=== PATIENT | male | born 1950 | race Caucasian/White ===

== ENCOUNTER → 2019-08-08 | Emergency (ER) | payer MEDICARE, BC ==
[~2019-08-08] VITALS: Ht 182.9 cm; Wt 102.1 kg
[~2019-08-08] MED LIST: cefTRIAXone 1GM/50ML D5W 50 ML IV ONE
[2019-08-08 20:33] LABS: Basophils # (auto) 0.1 10 ^3/uL (0-0.2); Basophils % (auto) 0.9 % (0.0-2.0); Eosinophils # (auto) 0.2 10 ^3/uL (0-0.8); Eosinophils % (auto) 1.3 % (0.0-7.0); Hematocrit 38.5 % (41.0-53.0); Lymphocytes # (auto) 1.1 10 ^3/uL (0.4-5.4); Lymphocytes % (auto) 8.4 % (10.0-50.0); Mean Corpuscular Hemoglobin 32.7 pg (28.0-32.0); Mean Corpuscular Hgb Conc. 33.8 g/dL (32.0-36.0); Mean Corpuscular Volume 96.6 fL (80.0-100.0); Monocytes # (auto) 1.2 10 ^3/uL (0-1.3); Monocytes % (auto) 9.1 % (0.0-12.0); Neutrophils # (auto) 10.7 10 ^3/uL (1.6-8.6); Neutrophils % (auto) 80.3 % (37.0-80.0); Platelet Count (auto) 241 10^3/uL (140-450); Red Blood Cells 3.98 10^6/uL (4.5-5.90); Red Cell Distribution Width 13.4 % (11.8-14.3); White Blood Cell 13.3 10^3/uL (4.4-10.8)
[2019-08-08 20:48] LABS: Albumin 2.9 g/dL (3.4-5.0); BUN/Creatinine Ratio 13.7; Calcium 9.5 mg/dL (8.5-10.1); Potassium 3.9 mmol/L (3.5-5.1)
[2019-08-08 20:51] LABS: Bilirubin, Total 0.8 mg/dL (0.2-1.0); Total Protein 7.4 g/dL (6.4-8.2)
[2019-08-08 21:12] LABS: INR 1.06 (0.9-1.15); Partial Thromboplastin Time 28.5 sec (23.64-32.05)
[2019-08-08 23:00] VITALS: BP 146/76
== END | disposition home or self-care (01) ==
LOC: ER 18:31
DX: J21.9 Acute bronchiolitis, unspecified (principal); E11.9 Type 2 diabetes mellitus without complications; I10 Essential (primary) hypertension
CPT/HCPCS: 36415; 36600; 71045; 80053; 82805; 83605; 83880; 84484; 85025; 85379; 85610; 85730; 87040; 87070; 87804; 87880; 93005; 96365; 99285; J0696

== ENCOUNTER 2023-11-02 12:08 | Inpatient (IN) | payer MEDICARE, BC ==
[~2023-11-02] VITALS: Ht 182.9 cm; Wt 117.8 kg
[2023-11-02 14:08] LABS: Basophils # (auto) 0 10 ^3/uL (0-0.2); Basophils % (auto) 0.2 % (0.0-2.0); Eosinophils # (auto) 0 10 ^3/uL (0-0.8); Eosinophils % (auto) 0.7 % (0.0-7.0); Hematocrit 41.8 % (41.0-53.0); Hemoglobin 13.8 g/dL (13.5-17.5); Lymphocytes # (auto) 0.6 10 ^3/uL (0.4-5.4); Lymphocytes % (auto) 21.2 % (10.0-50.0); Mean Corpuscular Volume 93.8 fL (80.0-100.0); Monocytes # (auto) 0.2 10 ^3/uL (0-1.3); Neutrophils % (auto) 71.9 % (37.0-80.0); Nucleated Red Blood Cells % 0.1 %; Red Blood Cells 4.45 10^6/uL (4.5-5.90); Red Cell Distribution Width 16.8 % (11.8-14.3); White Blood Cell 2.8 10^3/uL (4.4-10.8)
[2023-11-02 14:45] LABS: Alanine Aminotransferase 42 U/L (7-40); Albumin 4.4 g/dL (3.2-4.8); Alkaline Phosphatase 94 U/L (46-116); Anion Gap 7 (5-15); Aspartate Aminotransferase 24 U/L (13-40); BUN/Creatinine Ratio 12.6 (10.0-20.0); Bilirubin, Total 0.7 mg/dL (0.2-1.0); Blood Urea Nitrogen 20 mg/dL (9-23); Calcium 9.9 mg/dL (8.7-10.4); Carbon Dioxide 24 mmol/L (20-30); Chloride 107 mmol/L (98-107); Glucose 163 mg/dL (74-106); Potassium 4.5 mmol/L (3.5-5.1); Sodium 138 mmol/L (136-145); Total Protein 7.2 g/dL (5.7-8.2)
[2023-11-02 15:43] LABS: Urine Bacteria None Seen /hpf (None Seen)
[2023-11-02 16:10] LABS: Urine Blood Negative /uL (Negative); Urine Clarity Clear (Clear); Urine Color Yellow (Yellow); Urine Hyaline Cast FEW /lpf (0 - 2); Urine Mucus FEW (None Seen); Urine Protein, UAD TRACE (Negative); Urine Specific Gravity 1.024 (1.001-1.035); Urine Urobilinogen Normal (Negative); Urine WBC 1 /hpf (0 - 3); Urine pH 5.5 (5.0-9.0)
[2023-11-02] MEDS ORDERED: DOCUSATE SOD 100 MG CAP PO PRN (19:00)
[2023-11-02] MEDS ORDERED: ACETAMINOPHEN 325 MG TAB PO PRN (19:00)
[2023-11-02] MEDS ORDERED: LISI20TA56 PO (19:30)
[2023-11-02] MEDS ORDERED: MET25T PO (19:30)
[2023-11-02] MEDS ORDERED: FOLI-119 PO (19:30)
[2023-11-02] MEDS ORDERED: DOXA1TAB84 PO (19:30)
[2023-11-02] MEDS ORDERED: LINA5TAB PO (19:30)
[2023-11-02] MEDS ORDERED: ROSU5TAB24 PO (19:30)
[2023-11-02] MEDS ORDERED: DEXTROSE (50%) 50ML SYRG IV PRN (19:30)
[2023-11-02] MEDS ORDERED: AMLO1TAB23 PO (19:30)
[2023-11-02] MEDS ORDERED: PIOG1TAB36 PO (19:30)
[2023-11-02] MEDS: metroNIDAZOLE 500MG/100ML 100 ML IV ONE (22:39)
[2023-11-02] MEDS: cefTRIAXone SOD 1,000 MG VL ONE (22:53)
[2023-11-02] MEDS: cefTRIAXone 2GM/50ML D5W 50 ML IV ONE (22:55)
[2023-11-02 23:31] VITALS: PULSE 106; RESP 16; O2SAT 93
[2023-11-02] MEDS: metroNIDAZOLE 500MG/100ML 100 ML IV SCH (23:41)
[2023-11-02] MEDS: METOPROLOL TARTRATE 25 MG TAB PO SCH (23:42)
[2023-11-02] MEDS: SODIUM CHLORIDE 0.9% 1,000 ML IV SCH (23:42)
[2023-11-03] VITALS (7 sets, daily range): BP systolic 90–142; BP diastolic 46–71; PULSE 89–123; RESP 16–22; TEMP 98.3–99.3; O2SAT 90–95
[2023-11-03] MEDS: ACCU-CHEK COMFORT CURVE STRIP VI SCH (00:45)
[2023-11-03] MEDS: InsuLIN REG 1unit/0.01ml Soln (100units/ml) SC SCH (00:45)
[2023-11-03] MEDS: MORPHINE SULFATE INJ 2 MG/ml SYRG IV PRN ×2 (03:52→15:48)
[2023-11-03] MEDS: ONDANSETRON HCL 4 MG/2 ML VIAL IV PRN (03:53)
[2023-11-03 06:04] LABS: Basophils # (auto) 0 10 ^3/uL (0-0.2); Basophils % (auto) 0.1 % (0.0-2.0); Eosinophils # (auto) 0 10 ^3/uL (0-0.8); Hematocrit 36.6 % (41.0-53.0); Hemoglobin 12.4 g/dL (13.5-17.5); Lymphocytes # (auto) 0.8 10 ^3/uL (0.4-5.4); Lymphocytes % (auto) 7.3 % (10.0-50.0); Mean Corpuscular Hemoglobin 31.3 pg (28.0-32.0); Mean Corpuscular Hgb Conc. 33.9 g/dL (32.0-36.0); Mean Corpuscular Volume 92.5 fL (80.0-100.0); Neutrophils # (auto) 8.6 10 ^3/uL (1.6-8.6); Neutrophils % (auto) 82.6 % (37.0-80.0); Red Blood Cells 3.95 10^6/uL (4.5-5.90); Red Cell Distribution Width 16.8 % (11.8-14.3); White Blood Cell 10.4 10^3/uL (4.4-10.8)
[2023-11-03] MEDS: HYDROcodone-ACET 5/325MG TAB PO PRN (06:14)
[2023-11-03 06:18] LABS: Alanine Aminotransferase 68 U/L (7-40); Albumin 4.2 g/dL (3.2-4.8); Alkaline Phosphatase 99 U/L (46-116); Anion Gap 8 (5-15); Aspartate Aminotransferase 44 U/L (13-40); BUN/Creatinine Ratio 12.9 (10.0-20.0); Calcium 9.4 mg/dL (8.5-10.1); Carbon Dioxide 23 mmol/L (20-30); Chloride 105 mmol/L (98-107); Glucose 140 mg/dL (74-106); Sodium 136 mmol/L (136-145); Total Protein 6.5 g/dL (5.7-8.2)
[2023-11-03 06:51] LABS: Blood Urea Nitrogen 34 mg/dL (9-23); Potassium 6.5 mmol/L (3.5-5.1)
[2023-11-03 08:05] LABS: Alanine Aminotransferase 64 U/L (7-40); Albumin 4.1 g/dL (3.2-4.8); Alkaline Phosphatase 96 U/L (46-116); Anion Gap 10 (5-15); Aspartate Aminotransferase 39 U/L (13-40); BUN/Creatinine Ratio 14.2 (10.0-20.0); Blood Urea Nitrogen 36 mg/dL (9-23); Calcium 9.1 mg/dL (8.5-10.1); Carbon Dioxide 21 mmol/L (20-30); Chloride 106 mmol/L (98-107); Glucose 125 mg/dL (74-106); Sodium 137 mmol/L (136-145)
[2023-11-03 08:06] LABS: Total Protein 6.4 g/dL (5.7-8.2)
[2023-11-03 08:07] LABS: INR 1.04 (0.9-1.15)
[2023-11-03] MEDS ORDERED: cefTRIAXone 1GM/50ML D5W 50 ML IV SCH (09:00)
[2023-11-03] MEDS: DOXAZOSIN MESYL 2 MG TAB PO SCH (10:00)
[2023-11-03] MEDS: amLODIPine BESYLATE 5 MG TAB PO SCH (10:00)
[2023-11-03] MEDS: PANTOPRAZOLE 40 MG/10 ML VIAL INJ IV SCH (10:00)
[2023-11-03] MEDS: PIPERACILLIN-TAZOB 3.375GM 100 ML IV SCH (10:00)
[2023-11-03] MEDS: FOLIC ACID 1 MG TAB PO SCH (10:01)
[2023-11-03] MEDS: ATORVASTATIN 20 MG TAB PO SCH (10:01)
[2023-11-04] VITALS (15 sets, daily range): BP systolic 116–141; BP diastolic 63–73; PULSE 76–112; RESP 16–22; TEMP 97.6–100.2; O2SAT 90–100
[2023-11-04] MEDS ORDERED: BUPIVACAINE HCL 50 ML ONE (06:55)
[2023-11-04] MEDS ORDERED: LIDOCAINE W/ EPINEPHRINE 1% 20ML VIAL ONE (06:55)
[2023-11-04] MEDS ORDERED: ceFAZolin 2 GM/D5W50ml 50 ML IV ONE (06:58)
[2023-11-04] MEDS ORDERED: LIDOCAINE 2% JELLY 11ml (GLYDO) ONE (07:03)
[2023-11-04] MEDS ORDERED: SUCCINYLCHOLINE CHLORIDE 20 MG/ML 10ML VIAL IV ONE (07:16)
[2023-11-04] MEDS ORDERED: fentaNYL CITRATE 100 MCG/2 ML VL ONE (07:22)
[2023-11-04] MEDS ORDERED: MIDAZOLAM HCL 2MG/2ML 2ml VIAL (1mg/ml) ONE (07:23)
[2023-11-04] MEDS ORDERED: MEPERIDINE HCL (50 MG/ML) 1 ML VIAL ONE (07:23)
[2023-11-04] MEDS ORDERED: DexAMETHasone SOD PHOS 10MG/1ML VIAL INJ ONE (07:46)
[2023-11-04] MEDS ORDERED: PROPOFOL 10 MG/ML 20 ML IV ONE (07:46)
[2023-11-04] MEDS ORDERED: POVIDONE IODINE 10 % TOPICAL OINT 30GM TOP ONE (08:19)
[2023-11-04] MEDS ORDERED: HYDROmorphone HCL 2 MG/ML VL/or syr IV PRN ×2 (08:30→09:15)
[2023-11-04] MEDS ORDERED: D5W/SOD CHL 0.45%/KCL 20MEQ 1,000 ML IV SCH (08:30)
[2023-11-04] MEDS: IPRATROPIUM BROM 0.5 MG/2.5ML INH SOL NEB ONE ×2 (09:09→14:31)
[2023-11-04] MEDS: ALBUTEROL SULF 2.5 MG/0.5ML(0.5%) NEB SOLN ONE (09:09)
[2023-11-04] MEDS: ALBUTEROL SULF 2.5 MG/0.5ML(0.5%) NEB SOLN NEB ONE (09:09)
[2023-11-04] MEDS: IPRATROPIUM BROM 0.5 MG/2.5ML INH SOL ONE (09:09)
[2023-11-04] MEDS ORDERED: LABETALOL HCL 5 MG/ML 4ML SYRINGE IV PRN (09:15)
[2023-11-04] MEDS ORDERED: MIDAZOLAM HCL 2MG/2ML 2ml VIAL (1mg/ml) IV PRN (09:15)
[2023-11-04] MEDS ORDERED: ONDANSETRON HCL 4 MG/2 ML VIAL IV ONE (09:15)
[2023-11-04] MEDS ORDERED: ePHEDrine SULFATE 50 MG/ML AMP IV PRN (09:15)
[2023-11-04] MEDS ORDERED: MORPHINE SULFATE 4 MG/ML SYR/VIAL IV PRN (09:15)
[2023-11-04] MEDS ORDERED: metroNIDAZOLE 500MG/100ML 100 ML IV SCH (14:00)
[2023-11-04] MEDS: SODIUM CHLORIDE 0.9% 1,000 ML IV SCH (18:52)
[2023-11-04] MEDS: IPRATROPIUM BROM 0.5 MG/2.5ML INH SOL NEB SCH (19:11)
[2023-11-05] VITALS (15 sets, daily range): BP systolic 101–157; BP diastolic 62–90; PULSE 89–136; RESP 16–20; TEMP 97.7–98.9; O2SAT 90–99
[2023-11-05 05:56] LABS: Basophils # (auto) 0 10 ^3/uL (0-0.2); Basophils % (auto) 0.1 % (0.0-2.0); Eosinophils # (auto) 0 10 ^3/uL (0-0.8); Eosinophils % (auto) 0.1 % (0.0-7.0); Hematocrit 34.9 % (41.0-53.0); Hemoglobin 11.7 g/dL (13.5-17.5); Lymphocytes # (auto) 0.6 10 ^3/uL (0.4-5.4); Lymphocytes % (auto) 4.2 % (10.0-50.0); Mean Corpuscular Hgb Conc. 33.6 g/dL (32.0-36.0); Mean Corpuscular Volume 92.1 fL (80.0-100.0); Monocytes # (auto) 0.9 10 ^3/uL (0-1.3); Monocytes % (auto) 6.9 % (0.0-12.0); Neutrophils # (auto) 11.8 10 ^3/uL (1.6-8.6); Neutrophils % (auto) 88.7 % (37.0-80.0); Red Blood Cells 3.79 10^6/uL (4.5-5.90); Red Cell Distribution Width 16.7 % (11.8-14.3); White Blood Cell 13.3 10^3/uL (4.4-10.8)
[2023-11-05 06:19] LABS: Alanine Aminotransferase 29 U/L (7-40); Albumin 3.7 g/dL (3.2-4.8); Alkaline Phosphatase 97 U/L (46-116); Anion Gap 8 (5-15); Aspartate Aminotransferase 19 U/L (13-40); BUN/Creatinine Ratio 21.9 (10.0-20.0); Blood Urea Nitrogen 44 mg/dL (9-23); Calcium 9.1 mg/dL (8.7-10.4); Carbon Dioxide 20 mmol/L (20-30); Chloride 107 mmol/L (98-107); Glucose 161 mg/dL (74-106); Potassium 4.8 mmol/L (3.5-5.1); Sodium 135 mmol/L (136-145)
[2023-11-05 06:20] LABS: Bilirubin, Total 0.5 mg/dL (0.2-1.0)
[2023-11-05] MEDS: HEPARIN SODIUM (PORCINE) 5000 UNITS/ML 1ML VIAL SC ONE (15:06)
[2023-11-05] MEDS: HEPARIN SODIUM (PORCINE) 5000 UNITS/ML 1ML VIAL SC SCH (22:03)
[2023-11-05] MEDS: CALCIUM CARB 500 MG CHEW TAB PO PRN (22:05)
[2023-11-06] VITALS (15 sets, daily range): BP systolic 94–133; BP diastolic 72–83; PULSE 61–137; RESP 16–22; TEMP 97.5–98.5; O2SAT 91–98
[2023-11-06 09:31] LABS: Hematocrit 37.4 % (41.0-53.0); Hemoglobin 12.6 g/dL (13.5-17.5); Mean Corpuscular Hemoglobin 30.9 pg (28.0-32.0); Mean Corpuscular Hgb Conc. 33.6 g/dL (32.0-36.0); Red Blood Cells 4.07 10^6/uL (4.5-5.90); Red Cell Distribution Width 16.9 % (11.8-14.3); White Blood Cell 15.8 10^3/uL (4.4-10.8)
[2023-11-06 09:39] LABS: Basophils % (manual) 0 (0.0-2.0); Blast Cells 0; Eosinophils % (manual) 0 (0-7); Metamyelocytes % 0; Myelocytes % 0; Promyelocytes % 0; Reactive Lymphocytes 0
[2023-11-06 09:49] LABS: Chloride 109 mmol/L (98-107); Sodium 138 mmol/L (136-145)
[2023-11-06 09:51] LABS: Anion Gap 9 (5-15); Calcium 9.2 mg/dL (8.5-10.1); Carbon Dioxide 20 mmol/L (20-30)
[2023-11-06 09:56] LABS: Glucose 176 mg/dL (74-106)
[2023-11-06 10:14] LABS: Anisocytosis Slight; Band Neutrophils % (manual) 7; Lymphocytes % (manual) 6 (10.0-50.0); Monocytes % (manual) 10 (0-12); Platelet Estimate Adequate
[2023-11-06 10:30] LABS: BUN/Creatinine Ratio 25.3 (10.0-20.0); Blood Urea Nitrogen 48 mg/dL (9-23); Potassium 4.4 mmol/L (3.5-5.1)
[2023-11-06] MEDS: METOPROLOL TARTRATE 25 MG TAB PO ONE (10:45)
[2023-11-06] MEDS: ALBUTEROL SULF 2.5 MG/0.5ML(0.5%) NEB SOLN NEB SCH (12:00)
[2023-11-06] MEDS: IPRATROPIUM BROM 0.5 MG/2.5ML INH SOL NEB SCH (12:00)
[2023-11-06] MEDS: levoFLOXacin 250MG 50 ML IV ONE (16:56)
[2023-11-06] MEDS: METOPROLOL TARTRATE 50 MG TAB PO SCH (21:42)
[2023-11-06] MEDS: APIXABAN 5 MG TAB PO SCH (21:43)
[2023-11-06] MEDS ORDERED: METOPROLOL TARTRATE 25 MG TAB PO SCH (22:00)
[2023-11-07] VITALS (14 sets, daily range): BP systolic 105–136; BP diastolic 71–105; PULSE 79–134; RESP 16–22; TEMP 97.9–98.1; O2SAT 94–100
[2023-11-07 05:30] LABS: Hematocrit 36.2 % (41.0-53.0); Hemoglobin 11.9 g/dL (13.5-17.5); Mean Corpuscular Hemoglobin 30.3 pg (28.0-32.0); Mean Corpuscular Hgb Conc. 32.9 g/dL (32.0-36.0); Mean Corpuscular Volume 92.3 fL (80.0-100.0); Red Blood Cells 3.92 10^6/uL (4.5-5.90); Red Cell Distribution Width 17.3 % (11.8-14.3); White Blood Cell 13.9 10^3/uL (4.4-10.8)
[2023-11-07 05:31] LABS: Band Neutrophils % (manual) 0; Basophils % (manual) 0 (0.0-2.0); Blast Cells 0; Eosinophils % (manual) 0 (0-7); Metamyelocytes % 0; Myelocytes % 0; Promyelocytes % 0; Reactive Lymphocytes 0
[2023-11-07 05:36] LABS: Chloride 107 mmol/L (98-107); Potassium 4.1 mmol/L (3.5-5.1); Sodium 137 mmol/L (136-145)
[2023-11-07 05:37] LABS: Anion Gap 9 (5-15); Calcium 8.8 mg/dL (8.5-10.1); Carbon Dioxide 21 mmol/L (20-30)
[2023-11-07 05:42] LABS: BUN/Creatinine Ratio 29.4 (10.0-20.0); Blood Urea Nitrogen 48 mg/dL (9-23); Glucose 162 mg/dL (74-106)
[2023-11-07 05:43] LABS: Magnesium 2.3 mg/dL (1.6-2.6)
[2023-11-07 07:13] LABS: Lymphocytes % (manual) 7 (10.0-50.0); Monocytes % (manual) 13 (0-12); Smudge Cells 1 /100 WBC
[2023-11-07 07:14] LABS: Platelet Estimate Adequate
[2023-11-07] MEDS: levoFLOXacin 250MG 50 ML IV SCH (09:21)
[2023-11-07] MEDS: DIGOXIN (250MCG/ML) 2 ML AMPULE IV ONE ×2 (10:05→12:43)
[2023-11-08] VITALS (24 sets, daily range): BP systolic 107–142; BP diastolic 62–86; PULSE 71–144; RESP 16–96; TEMP 97.7–98.2; O2SAT 94–100
[2023-11-08 06:00] LABS: Basophils # (auto) 0 10 ^3/uL (0-0.2); Basophils % (auto) 0.1 % (0.0-2.0); Eosinophils # (auto) 0.1 10 ^3/uL (0-0.8); Eosinophils % (auto) 0.9 % (0.0-7.0); Hematocrit 36.9 % (41.0-53.0); Hemoglobin 12.2 g/dL (13.5-17.5); Lymphocytes # (auto) 1.5 10 ^3/uL (0.4-5.4); Lymphocytes % (auto) 9.5 % (10.0-50.0); Mean Corpuscular Hemoglobin 30.3 pg (28.0-32.0); Mean Corpuscular Volume 91.8 fL (80.0-100.0); Monocytes # (auto) 1.5 10 ^3/uL (0-1.3); Monocytes % (auto) 9.6 % (0.0-12.0); Neutrophils # (auto) 12.5 10 ^3/uL (1.6-8.6); Neutrophils % (auto) 79.9 % (37.0-80.0); Red Blood Cells 4.02 10^6/uL (4.5-5.90); Red Cell Distribution Width 16.8 % (11.8-14.3); White Blood Cell 15.6 10^3/uL (4.4-10.8)
[2023-11-08 06:05] LABS: Chloride 107 mmol/L (98-107); Potassium 4.1 mmol/L (3.5-5.1); Sodium 136 mmol/L (136-145)
[2023-11-08 06:06] LABS: Anion Gap 7 (5-15); Calcium 8.7 mg/dL (8.7-10.4); Carbon Dioxide 22 mmol/L (20-30)
[2023-11-08 06:11] LABS: BUN/Creatinine Ratio 32.6 (10.0-20.0); Blood Urea Nitrogen 42 mg/dL (9-23); Glucose 165 mg/dL (74-106)
[2023-11-08 06:12] LABS: Magnesium 2.1 mg/dL (1.6-2.6)
[2023-11-08] MEDS: metroNIDAZOLE 500MG/100ML 100 ML IV ONE (10:40)
[2023-11-08] MEDS: DIGOXIN 0.125 MG TAB PO ONE (10:41)
[2023-11-08] MEDS ORDERED: metroNIDAZOLE 500MG/100ML 100 ML IV SCH (14:00)
[2023-11-08] MEDS: MEROPENEM 1GM IVPB 50 ML IV ONE (15:24)
[2023-11-08] MEDS: MEROPENEM 1GM IVPB 50 ML IV SCH (15:24)
[2023-11-09] VITALS (10 sets, daily range): BP systolic 106–132; BP diastolic 64–74; PULSE 71–95; RESP 17–20; TEMP 98.1–98.8; O2SAT 93–100
[2023-11-09 06:36] LABS: Anion Gap 6 (5-15); Carbon Dioxide 25 mmol/L (20-30); Chloride 105 mmol/L (98-107); Potassium 4.1 mmol/L (3.5-5.1); Sodium 136 mmol/L (136-145)
[2023-11-09 06:38] LABS: Calcium 8.7 mg/dL (8.7-10.4)
[2023-11-09 06:43] LABS: BUN/Creatinine Ratio 29.3 (10.0-20.0); Blood Urea Nitrogen 36 mg/dL (9-23); Glucose 165 mg/dL (74-106)
[2023-11-09 06:49] LABS: Hematocrit 35.1 % (41.0-53.0); Hemoglobin 11.8 g/dL (13.5-17.5); Mean Corpuscular Hgb Conc. 33.7 g/dL (32.0-36.0); Mean Corpuscular Volume 91.9 fL (80.0-100.0); Red Blood Cells 3.82 10^6/uL (4.5-5.90); White Blood Cell 14.5 10^3/uL (4.4-10.8)
[2023-11-09 06:52] LABS: Basophils % (manual) 0 (0.0-2.0); Blast Cells 0; Promyelocytes % 0
[2023-11-09 07:44] LABS: Anisocytosis Slight; Band Neutrophils % (manual) 7; Eosinophils % (manual) 2 (0-7); Lymphocytes % (manual) 6 (10.0-50.0); Metamyelocytes % 3; Monocytes % (manual) 9 (0-12); Myelocytes % 1; Platelet Estimate Adequate; Reactive Lymphocytes 1
[2023-11-09] MEDS: DIGOXIN 0.125 MG TAB PO SCH (09:37)
[2023-11-09] MEDS: FLECAINIDE ACETATE 50 MG TAB PO ONE (12:40)
[2023-11-09] MEDS ORDERED: FLECAINIDE ACETATE 50 MG TAB PO SCH (22:00)
== END 2023-11-09 18:38 | disposition left against medical advice (07) | DRG 853 ==
LOC: ER 12:08 → OVERFLOW 19:30 → EAST 11-03 03:30 → TELE-E-ADS 11-05 04:01
PROVIDERS: ADMIT Internal Medicine Geriatric Medicine; ATTEND Internal Medicine Geriatric Medicine
PROC: 0WJG4ZZ Inspection of Peritoneal Cavity, Percutaneous Endoscopic Approach (ICD-10-PCS; 2023-11-04)
PROC: 0DTJ0ZZ Resection of Appendix, Open Approach (ICD-10-PCS; principal; 2023-11-04 07:23)
DX: A41.9 Sepsis, unspecified organism (principal); N17.0 Acute kidney failure with tubular necrosis; K56.7 Ileus, unspecified; K35.30 Acute appendicitis with localized peritonitis, without perforation or gangrene; E78.5 Hyperlipidemia, unspecified; I10 Essential (primary) hypertension; E11.9 Type 2 diabetes mellitus without complications; K76.0 Fatty (change of) liver, not elsewhere classified; Z96.653 Presence of artificial knee joint, bilateral; E66.01 Morbid (severe) obesity due to excess calories; N40.0 Benign prostatic hyperplasia without lower urinary tract symptoms; K66.0 Peritoneal adhesions (postprocedural) (postinfection); I48.0 Paroxysmal atrial fibrillation; Z87.442 Personal history of urinary calculi; Z68.35 Body mass index [BMI] 35.0-35.9, adult; Z79.899 Other long term (current) drug therapy; Z79.84 Long term (current) use of oral hypoglycemic drugs; Z53.31 Laparoscopic surgical procedure converted to open procedure; Z86.79 Personal history of other diseases of the circulatory system
CPT/HCPCS: 36415; 71045; 74176; 80048; 80053; 81001; 82962; 83036; 83735; 85007; 85025; 85027; 85610; 85730; 86850; 86900; 86901; 87070; 87075; 87077; 87186; 87205; 93005; 93306; 94640; 96365; 97110; 97116; 97163; 97530; C9113; G0378; J0330; J0696; J1100; J1815; J2185; J2250; J2405; J2543; J2704; J3490

== ENCOUNTER 2024-03-25 08:30 | Inpatient (IN) | payer MEDICARE, OTHER ==
[2024-03-25] VITALS (7 sets, daily range): BP systolic 92–111; BP diastolic 53–62; PULSE 85–96; RESP 17–28; TEMP 98–98.8; O2SAT 92–100
[~2024-03-25] VITALS: Ht 182.9 cm; Wt 111.5 kg
[~2024-03-25 08:30] MED LIST changes: +AMLO1TAB23 PO; +DOXA1TAB84 PO; +FOLI-119 PO; +LINA5TAB PO; +LISI20TA56 PO; +MET25T PO; +PIOG1TAB36 PO; +ROSU5TAB24 PO; -cefTRIAXone 1GM/50ML D5W 50 ML IV ONE
--- NOTE | 2024-03-25 08:44 | ED.PDOC ---
SOB-HPI HPI Comments 74 year old male YESI presents to the ED with chief complaint of SOB. Patient reports that he has been experiencing SOB since this morning after waking up along with non-related abdominal pain for the past few days. Patient relays that he received his Influenza vaccine a week ago. EMS states patient was placed on O2 on route to the ED. Patient denies any chest pain, headache, cough, dizziness, or N/V/D. Time Seen by MD: 08:45 Primary Care Provider: CHRISTINE Ordoñez notes: Nurses Notes, Squad Boss Notes, Medications, Allergies Information Source: Patient, Emergency Med Personnel Mode of Arrival: EMS Severity: Moderate Timing: Hours Duration: Since onset Context: At Rest PE Risk Factors: None History of: None Prehospital treatment: None Modifying Factors: Nothing Associated Signs and Symptoms: None Past Medical History PAST MEDICAL HISTORY: DM, HTN Surgical History: Denies all surgeries Family History Family History: Reviewed,noncontributory to illness Social History Smoker: Non-Smoker Alcohol: Denies ETOH Use Drugs: Denies Drug Use Lives In: Home Constitutional: denies: chills, diaphoresis, fatigue, fever, malaise, sweats, weakness, others EENTM: denies: blurred vision, double vision, ear bleeding, ear discharge, ear drainage, ear pain, ear ringing, eye pain, eye redness, hearing loss, mouth pain, mouth swelling, nasal discharge, nose bleeding, nose congestion, nose pain, photophobia, tearing, throat pain, throat swelling, voice changes, others Respiratory: reports: shortness of breath; denies: cough, hemoptysis, orthopnea, SOB at rest, SOB with excertion, stridor, wheezing, others Cardiovascular: denies: chest pain, dizzy spells, diaphoresis, Dyspnea on exertion, edema, irregular heart beat, left arm pain, lightheadedness, palpitations, PND, syncope, others Gastrointestinal: reports: abdominal pain; denies: abdomen distended, blood streaked bowels, constipated, diarrhea, dysphagia, difficulty swallowing, hematemesis, melena, nausea, poor appetite, poor fluid intake, rectal bleeding, rectal pain, vomiting, others Genitourinary: denies: burning, dysuria, flank pain, frequency, hematuria, incontinence, penile discharge, penile sore, pain, testicle pain, testicle swelling, urgency, others Neurological: denies: dizziness, fainting, headache, left sided numbness, left sided weakness, numbness, paresthesia, pre-existing deficit, right sided numbness, right sided weakness, seizure, speech problems, tingling, tremors, weakness, others Musculoskeletal: denies: back pain, gout, joint pain, joint swelling, muscle pain, muscle stiffness, neck pain, others Integumetry: denies: bruises, change in color, change in hair/nails, dryness, laceration, lesions, lumps, rash, wounds, others Allergic/Immunocompromised: denies: Difficulty Healing, Frequent Infections, Hives, Itching, others Hematologic/Lymphatic: denies: anemia, blood clots, easy bleeding, easy bruising, swollen glands, others Endocrine: denies: excessive hunger, excessive sweating, excessive thirst, excessive urination, flushing, intolerance to cold, intolerance to heat, unexplained weight gain, unexplained weight loss, others Psychiatric: denies: anxiety, bipolar disorder, depression, hopeless, panic disorder, schizophrenia, sleepless, suicidal, others All Other Systems: Reviewed and Negative Physical Exam General Appearance: Moderate Distress, Normal HEENT: Normal ENT Inspection, PERRL/EOMI Neck: Full Range of Motion, Non-Tender, Normal, Normal Inspection Respiratory: Chest Non-Tender, No Accessory Muscle Use, Other (Coarse breath sounds) Cardiovascular: No Edema, No JVD, No Murmur, No Gallop, Normal Peripheral Pulses, Regular Rate/Rhythm Breast Exam: Deferred Gastrointestinal: No Organomegaly, Non Tender, No Pulsatile Mass, Normal Bowel Sounds, Soft Genitalia: Deferred Pelvic: Deferred Rectal: Deferred Extremities: No calf tenderness, Normal capillary refill, Normal inspection, Normal range of motion, Non-tender, No pedal edema Musculoskeletal : Apperance: Normal Neurologic: Alert, 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 Was a procedure done?: No Differential Dx Differential Diagnosis: Anxiety, Asthma, Bronchitis, CHF, COPD X-Ray, Labs, Meds, VS Vital Signs Date Time Temp Pulse Resp B/P (MAP) Pulse Ox O2 Delivery O2 Flow Rate FiO2 03/25/24 08:50 98.2 87 24 91/60 (70) 96 98.2 03/25/24 08:50 87 28 96 Nasal Cannula* 2 28 03/25/24 08:37 94 03/25/24 08:35 99.5 98 16 87/60 (69) 97 Lab Test 03/25/24 10:09 03/25/24 08:47 Range/Units Sodium Level Pending Potassium Level Pending Chloride Level Pending Carbon Dioxide Level Pending Anion Gap Pending Blood Urea Nitrogen Pending Creatinine Pending Glomerular Filtration Rate Calc Pending BUN/Creatinine Ratio Pending Serum Glucose Pending Calcium Level Pending Troponin I High Sensitivity 6 6 </=54 ng/L White Blood Count 3.1 L 4.4-10.8 10^3/uL Red Blood Count 4.24 L 4.5-5.90 10^6/uL Hemoglobin 12.8 L 13.5-17.5 g/dL Hematocrit 38.1 L 41.0-53.0 % Mean Corpuscular Volume 90.0 80.0-100.0 fL Mean Corpuscular Hemoglobin 30.2 28.0-32.0 pg Mean Corpuscular Hemoglobin Concent 33.5 32.0-36.0 g/dL Red Cell Distribution Width 16.6 H 11.8-14.3 % Platelet Count 186 140-450 10^3/uL Mean Platelet Volume 9.4 6.9-10.8 fL Neutrophils (%) (Auto) 37.0-80.0 % Lymphocytes (%) (Auto) 10.0-50.0 % Monocytes (%) (Auto) 0.0-12.0 % Basophils (%) (Auto) 0.0-2.0 % Neutrophils # (Auto) 1.6-8.6 10 ^3/uL Lymphocytes # (Auto) 0.4-5.4 10 ^3/uL Monocytes # (Auto) 0-1.3 10 ^3/uL Differential Total Cells Counted 100.0 100 Neutrophils % (Manual) 71 37.0-80.0 Band Neutrophils % (Manual) 7 Lymphocytes % (Manual) 15 10.0-50.0 Monocytes % (Manual) 7 0-12 Eosinophils % (Manual) 0 0-7 Basophils % (Manual) 0 0.0-2.0 Metamyelocytes % (manual) 0 Myelocytes % (Manual) 0 Promyelocytes % (Manual) 0 Blast Cells % (Manual) 0 Reactive Lymphocytes 0 Platelet Estimate Adequate Anisocytosis (manual) Slight Current Medications Medications (Trade) Dose Ordered Sig/Calista Route Start Time Stop Time Status Last Admin Sodium Chloride 1,000 ml @ 1,000 mls/hr Q1H ONCE IV 03/25/24 09:15 03/25/24 10:14 DC 03/25/24 09:35 Sodium Chloride 1,000 ml @ 1,000 mls/hr Q1H ONCE IV 03/25/24 09:45 03/25/24 10:44 DC 03/25/24 09:45 Sodium Chloride 1,000 ml @ 150 mls/hr Q6H40M ONCE IV 03/25/24 10:30 03/25/24 17:09 03/25/24 10:54 Patient alert. Complaining of abdominal pain shortness a breath. Shortness a breath just started this morning. Vitals stable. Abdomen is soft nontender. Abdominal pain has been going on for two days. Denies nausea vomiting. Symptoms started after her yearly vaccine. Reviewed his history. EKG reviewed does not show any acute changes. Explained to the patient. Continue cardiac monitoring. Blood pressure is low. Establish intravenous access. Was given fluids. Blood pressure equal on both arms. Chest XR: FINDINGS: Lines and Tubes: None Lungs: No focal consolidation. Pleura: No effusion. No pneumothorax. Cardiomediastinal contours: Unremarkable Bones: No acute osseous abnormality. IMPRESSION: No acute cardiopulmonary disease. Images Reviewed?: Images reviewed and evaluated by me Time of 1ST Reevaluation: 09:45 Reevaluation 1ST: Unchanged Patient Education/Counseling: Diagnosis, Treatment Family Education/Counseling: No Family Present Departure 1 Departure Time of Disposition: 09:09 Impression: Primary Impression: Hypotension Qualified Codes: I95.9 - Hypotension, unspecified Additional Impression: Acute abdominal pain Disposition: ADMITTED INPATIENT Admit to: Med Surg Condition: Guarded Critical Care Note Critical Care Time?: Yes (90 min-critical care time only) Stability Stability form required: No Heart Score Heart Score: Heart Score Response (Comments) Value History Slightly Suspicious 0 EKG Normal 0 Age >65 2 Risk Factors >3 or Hx ASHD 2 Troponin Normal limit 0 Total 4 I personally scribed for JESÚS ZAPAAT MD ([email or web address]) on 03/25/24 at 08:44. Electronically submitted by Sinan Lassiter ([email or web address]). I personally scribed for JESÚS ZAPATA MD ([email or web address]) on 03/25/24 at 08:47. Electronically submitted by Sinan Lassiter ([email or web address]). I personally scribed for JESÚS ZAPATA MD ([email or web address]) on 03/25/24 at 10:30. Electronically submitted by Sinan Lassiter ([email or web address]). JESÚS ZAPATA MD Mar 25, 2024 08:44
[2024-03-25] MEDS: ONDANSETRON HCL 4 MG/2 ML VIAL ONE (08:55)
[2024-03-25 09:08] LABS: Hematocrit 38.1 % (41.0-53.0); Hemoglobin 12.8 g/dL (13.5-17.5); Mean Corpuscular Hemoglobin 30.2 pg (28.0-32.0); Mean Corpuscular Hgb Conc. 33.5 g/dL (32.0-36.0); Platelet Count (auto) 186 10^3/uL (140-450); Red Blood Cells 4.24 10^6/uL (4.5-5.90); Red Cell Distribution Width 16.6 % (11.8-14.3); White Blood Cell 3.1 10^3/uL (4.4-10.8)
[2024-03-25 09:15] LABS: Basophils % (manual) 0 (0.0-2.0); Blast Cells 0; Eosinophils % (manual) 0 (0-7); Metamyelocytes % 0; Myelocytes % 0; Promyelocytes % 0; Reactive Lymphocytes 0
[2024-03-25] MEDS ORDERED: SODIUM CHLORIDE 0.9% 1,000 ML IV ONE (09:15)
--- NOTE | 2024-03-25 09:32 | DVH ---
CHEST RADIOGRAPH Indication:sob Technique: Single frontal view of the chest was obtained Comparison: XY CHEST PORTABLE on DOS: 11/04/23, XY CHEST PORTABLE on DOS: 11/03/23, CHEST PORTABLE on D OS: 08/08/19 FINDINGS: Lines and Tubes: None Lungs: No focal consolidation. Pleura: No effusion. No pneumothorax. Cardiomediastinal contours: Unremarkable Bones: No acute osseous abnormality. IMPRESSION: No acute cardiopulmonary disease.
[2024-03-25] MEDS: SODIUM CHLORIDE 0.9% 1,000 ML IV ONE ×4 (09:35→20:15)
[2024-03-25 10:59] LABS: Lymphocytes % (manual) 15 (10.0-50.0)
[2024-03-25 11:00] LABS: Anisocytosis Slight; Band Neutrophils % (manual) 7; Monocytes % (manual) 7 (0-12); Platelet Estimate Adequate
[2024-03-25 11:15] LABS: Chloride 106 mmol/L (98-107); Potassium 3.5 mmol/L (3.5-5.1); Sodium 141 mmol/L (136-145)
[2024-03-25 11:16] LABS: Anion Gap 15 (5-15); Calcium 9.1 mg/dL (8.7-10.4); Carbon Dioxide 20 mmol/L (20-31)
[2024-03-25 11:21] LABS: Blood Urea Nitrogen 48 mg/dL (9-23); Glucose 113 mg/dL (74-106)
[2024-03-25] MEDS ORDERED: ONDANSETRON HCL 4 MG/2 ML VIAL IV PRN (14:00)
[2024-03-25] MEDS ORDERED: MORPHINE SULFATE INJ 2 MG/ml SYRG IV PRN (14:00)
[2024-03-25] MEDS ORDERED: HYDROcodone-ACET 5/325MG TAB PO PRN (14:00)
[2024-03-25] MEDS ORDERED: TAMS0.4C39 PO (14:21)
[2024-03-25] MEDS ORDERED: ALLO100T PO (14:21)
[2024-03-25 14:40] LABS: Chloride 108 mmol/L (98-107); Potassium 3.8 mmol/L (3.5-5.1)
[2024-03-25 14:41] LABS: Calcium 8.8 mg/dL (8.7-10.4); Carbon Dioxide 22 mmol/L (20-31)
[2024-03-25 14:46] LABS: BUN/Creatinine Ratio 13.5 (10.0-20.0); Blood Urea Nitrogen 48 mg/dL (9-23); Glucose 110 mg/dL (74-106)
--- NOTE | 2024-03-25 15:03 | DVH ---
CT ABDOMEN AND PELVIS WITHOUT CONTRAST CLINICAL HISTORY: Abdominal pain TECHNIQUE: Multiple contiguous axial images of the abdomen and pelvis without intravenous contrast. The images were reformatted degenerate coronal and sagittal reconstructions. All CT scans at this medical facility are performed using dose modulation techniques as appropriate t o a performed exam including the following:Automated exposure control was utilized; adjustment of the MA and/or KV according to patient size; and use of iterative reconstruction technique. Radiation Dose Information: CT Dose: CTDI volume is 27.74 mGy. Dose-length product is 1483.54 mGy*cm Comparison: CT CT AB PEL WO CON-NO ORAL OR IV on DOS: 11/02/23 FINDINGS: Evaluation of the abdomen and pelvis is limited without intravenous contrast. There are multiple dilated small bowel loops in the abdomen which are mostly fluid-filled with air-fl uid levels noted anteriorly. These measure up to 4.1 cm in diameter. There are nondilated ileal loops seen in the right lower quadrant abdomen. There is no obvious transition zone identified. The large bowel loops demonstrate normal caliber. There are numerous diverticula seen in the sigmoid colon wit hout obvious diverticulitis. The stomach appears within normal limits. There are multiple small calcified granulomas in the spleen. Note is made of a horseshoe kidney . The re is no evidence of nephrolithiasis or hydronephrosis. The liver, gallbladder, pancreas, adrenal glands, appear within normal limits. There is no gross evidence of abdominal lymphadenopathy. There is small amount of ascites. There are edematous changes in the mesentery. The abdominal aorta and IVC appear within normal limits. Bladder is decompressed limiting evaluation. The prostate gland appears within normal limits. There is no evidence of a pelvic mass. There is small amount of free fluid in the pelvis.. Lung bases are clear. There are prominent calcified subcarinal mediastinal lymph nodes. There is no acute osseous abnormality. There are postsurgical changes in the anterior abdominal wall. IMPRESSION: 1. Multiple dilated small bowel loops measuring up to 4.1 cm in diameter. There are nondilated ileal loops seen in the right lower quadrant abdomen. There is no obvious transition zone. Findings May re late to ileus versus partial small bowel obstruction. Clinical correlation is recommended. 2. 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 3. Small amount of ascites and edematous changes in the mesentery. 4. Sigmoid diverticulosis. 5. Chronic granulomatous disease. HS:Y
--- NOTE | 2024-03-25 15:26 | DVHHP2 ---
History of Present Illness Reason for Visit: Shortness of breath and abdominal pain History of Present Illness 74-year-old male brought in by ambulance presents to the ED with chief complaint of shortness of breath. Patient states he has been experiencing shortness of breath since this morning after waking up as well as abdominal pain for the past 3 days. Patient states he received his flu vaccine 1 week ago. EMS placed patient on O2 EN route to the ED. when assessed patient reports not being able to urinate any significant amount since this morning. Patient was also noted to be hypotensive in the ambulance with lowest blood pressure reading 71/66. Patient was discharged November 08 after lap appendectomy, patient left AMA from that admission. Patient was given a fluid bolus, blood pressure is currently 93/69. Patient denies chest pain, headache, dizziness, diaphoresis, shortness of breath, no nausea, vomiting, fever, or chills endorsed by the patient. Patient was admitted for further evaluation medical management. Past Medical History DM, HTN Past Surgical History Appendectomy Family History Reviewed noncontributory to the management of this case Smoke: Quit (Quit 8 years ago) ALCOHOL: rare Drugs: None Lives: with Family Review of Systems Constitutional: No: Fever, Chills, Sweats, Weakness, Malaise, Other Eyes: No: Pain, Vision change, Conjunctivae inflammation, Eyelid inflammation, Other, Redness ENT: No: Ear pain, Ear discharge, Nose pain, Nose discharge, Nose congestion, Mouth pain, Mouth swelling, Throat pain, Throat swelling, Other Respiratory: Shortness of breath; No: Cough, Dry, SOB with excertion, Wheezing, Hemoptysis, Pleuritic Pain, Sputum, Wheezing, Other Cardiovascular: No: Chest Pain, Palpitations, Orthopnea, Paroxysmal Noc. Dyspnea, Edema, Lt Headedness, Other Gastrointestinal: Abdominal Pain; No: Nausea, Vomiting, Diarrhea, Constipation, Melena, Hematochezia, Other Genitourinary: No Dysuria, No Frequency, No Incontinence, No Hematuria; Retention; No Other Musculoskeletal: No: other, neck pain, shoulder pain, arm pain, back pain, hand pain, leg pain, foot pain Skin: No: Rash, Lesions, Jaundice, Bruising, Other Neurological: No: Weakness, Numbness, Incoordination, Change in speech, Confusion, Seizures, Other Allergies: Coded Allergies: NO KNOWN ALLERGIES (Unverified , 01/03/16) Medications Current Medications Medications Dose Ordered Sig/Calista Route Start Time Stop Time Status Last Admin Dose Admin Acetaminophen/ Hydrocodone Bitart 1 tab Q4HP PRN PO 03/25/24 14:00 Ondansetron HCl 4 mg Q4HP PRN IV 03/25/24 14:00 Morphine Sulfate 2 mg Q4HPRN PRN IV 03/25/24 14:00 Metoprolol Tartrate 25 mg BID PO 03/25/24 22:00 Amlodipine Besylate 10 mg DAILY PO 03/26/24 10:00 Atorvastatin Calcium 20 mg HS PO 03/25/24 22:00 Tamsulosin HCl 0.4 mg DAILY PO 03/26/24 10:00 Exam Vital Signs Vital Signs Date Time Temp Pulse Resp B/P (MAP) Pulse Ox O2 Delivery O2 Flow Rate FiO2 03/25/24 12:30 89 18 93/69 (77) 95 03/25/24 08:50 98.2 98.2 03/25/24 08:50 Nasal Cannula* 2 28 General Appearance: Alert, Oriented X3, Cooperative, No acute distress HEENT: Atraumatic, PERRLA, EOMI, Mucous membr. moist/pink Respiratory: Clear to auscultation, Other (Diminished) Cardiovascular: Regular rate, Normal S1, Normal S2, No murmurs Abdominal: Normal bowel sounds, Soft, No tenderness, No hepatospenomegaly, No masses Extremities: No clubbing, No cyanosis, No edema, Normal pulses, No tenderness/swelling Skin: No rashes, No breakdown, No significant lesion Neuro: Normal gait, Normal speech, Strength at 5/5 X4 ext, Normal tone, Sensation intact, Cranial nerves 3-12 NL Psych/Mental Status: Mental status NL, Mood NL Labs/Xrays Labs, imaging and ED notes reviewed Labs Test 03/25/24 12:03 03/25/24 08:47 Range/Units Sodium Level 142 136-145 mmol/L Potassium Level 3.8 3.5-5.1 mmol/L Chloride Level 108 H 98-107 mmol/L Carbon Dioxide Level 22 20-31 mmol/L Blood Urea Nitrogen 48 H 9-23 mg/dL Creatinine 3.56 H 0.700-1.30 mg/dL Glomerular Filtration Rate Calc 17 >90 mL/min BUN/Creatinine Ratio 13.5 10.0-20.0 Serum Glucose 110 H 74-106 mg/dL Calcium Level 8.8 8.7-10.4 mg/dL Troponin I High Sensitivity 5 </=54 ng/L White Blood Count 3.1 L 4.4-10.8 10^3/uL Red Blood Count 4.24 L 4.5-5.90 10^6/uL Hemoglobin 12.8 L 13.5-17.5 g/dL Hematocrit 38.1 L 41.0-53.0 % Mean Corpuscular Volume 90.0 80.0-100.0 fL Mean Corpuscular Hemoglobin 30.2 28.0-32.0 pg Mean Corpuscular Hemoglobin Concent 33.5 32.0-36.0 g/dL Red Cell Distribution Width 16.6 H 11.8-14.3 % Platelet Count 186 140-450 10^3/uL Mean Platelet Volume 9.4 6.9-10.8 fL Neutrophils (%) (Auto) 37.0-80.0 % Lymphocytes (%) (Auto) 10.0-50.0 % Monocytes (%) (Auto) 0.0-12.0 % Basophils (%) (Auto) 0.0-2.0 % Neutrophils # (Auto) 1.6-8.6 10 ^3/uL Lymphocytes # (Auto) 0.4-5.4 10 ^3/uL Monocytes # (Auto) 0-1.3 10 ^3/uL Differential Total Cells Counted 100.0 100 Neutrophils % (Manual) 71 37.0-80.0 Band Neutrophils % (Manual) 7 Lymphocytes % (Manual) 15 10.0-50.0 Monocytes % (Manual) 7 0-12 Eosinophils % (Manual) 0 0-7 Basophils % (Manual) 0 0.0-2.0 Metamyelocytes % (manual) 0 Myelocytes % (Manual) 0 Promyelocytes % (Manual) 0 Blast Cells % (Manual) 0 Reactive Lymphocytes 0 Platelet Estimate Adequate Anisocytosis (manual) Slight Assessment/Plan Assessment/Plan Acute hypoxic respiratory failure Admit to medical/surgical 2 L nasal cannula Supplemental oxygen Titrate to keep SpO2 greater than 92% Abdominal pain secondary to possible ileus versus partial bowel obstruction No nausea or vomiting per patient Zofran p.r.n. GI consult LUZ ELENA Renal panel notes sample was hemolyzed Repeat labs Consult nephrology Follow up a.m. labs Chronic BPH Possible urinary retention-nursing to do bladder scan, insert Almanzar if patient is unable to void Continue Flomax Hypotension Fluid bolus given Blood pressure stable Hold home blood pressure medications until blood pressure stabilized History diabetes mellitus type 2 Accu-Cheks a.c. HS Moderate insulin sliding scale FEN/PPX GI prophylaxis VTE prophylaxis not indicated Clear liquid diet Plan discussed with: Patient My Orders Orders - EDA LAZO Procedure Category Date Status Time Ct Ab Pel Wo Con-No CT 03/25/24 Resulted Oral Or Iv 14:00 Covid19 Antigen Farideh LAB 03/25/24 Logged Rapid Influenza A&B LAB 03/25/24 Logged 14:00 Basic Metabolic Panel LAB 03/25/24 In Process 14:00 Admit ADMIT 03/25/24 Transmitted 14:00 Code Status CODE 03/25/24 Transmitted 14:00 Vital Signs [facility] 03/25/24 In Process 14:00 Review Orders With [facility] 03/25/24 In Process Adm. 14:00 Bedrest With Bathroom [facility] 03/25/24 In Process Privileg 14:00 Consistent DIET 03/25/24 Transmitted Carb(Ccho)Diabetes Dinner Notify Of Changes [facility] 03/25/24 In Process From Base 14:00 Advance Directive [facility] 03/25/24 In Process 14:00 Basic Metabolic Panel LAB 03/26/24 Verified 04:00 Complete Blood Count LAB 03/26/24 Verified 04:00 Patient Condition ORDERS 03/25/24 Transmitted 14:00 Allergies [facility] 03/25/24 In Process 14:00 Hydrocodone-Acet PHA 03/25/24 In Process 5/325mg Tab ([place] 14:00 Ondansetron Hcl PHA 03/25/24 In Process (Zofran) 14:00 Morphine Sulfate PHA 03/25/24 In Process Injection 14:00 Metoprolol Tartrate PHA 03/25/24 In Process Tablet (Lopressor Ta 22:00 Amlodipine Tablet PHA 03/26/24 In Process (Norvasc Tablet) 10:00 Atorvastatin (Lipitor) PHA 03/25/24 In Process 22:00 Tamsulosin PHA 03/26/24 In Process Hydrochloride (Flomax) 10:00 Date of Service: Mar 25, 2024 Billing Provider: EDA LAZO Common Visit Codes: [id number] INP/OBS CARE (HIGH) EDA LAZO B[employer] WORKER Mar 25, 2024 15:26
[2024-03-25 15:30] LABS: Anion Gap 12 (5-15); Sodium 142 mmol/L (136-145)
[2024-03-25] MEDS ORDERED: DEXTROSE (50%) 50ML SYRG IV PRN (15:30)
[2024-03-25] MEDS: PANTOPRAZOLE 40 MG/10 ML VIAL INJ IV SCH (16:32)
[2024-03-25] MEDS: InsuLIN REG 1unit/0.01ml Soln (100units/ml) SC SCH (17:00)
[2024-03-25] MEDS: ACCU-CHEK COMFORT CURVE STRIP VI SCH (17:27)
--- NOTE | 2024-03-25 17:33 | DVHINCON2 ---
Date of service: Mar 25, 2024 Reason for Consultation Acute kidney injury History of Present Illness 79-year-old male past medical history of diabetes, hypertension and BPH presents to the hospital complaining of shortness of breath and near loss of consciousness. Nephrology consulted due to abnormal renal function. Per EMS patient has had low blood pressure since presentation. He reports that he took his blood pressure medications prior to EMS. In the ER his blood pressure has been ranging between 90-107 systolic Patient is status post CT of the abdomen which shows possible bowel obstruction Past Medical History Aortic aneurysm Diabetes Hypertension Allergies: Coded Allergies: NO KNOWN ALLERGIES (Unverified , 01/03/16) Home Meds Reported Medications Allopurinol (Allopurinol) 100 Mg Tab, 1 TAB PO DAILY 03/25/24 Tamsulosin Hcl (Tamsulosin Hcl) 0.4 Mg Cap, 1 CAP PO DAILY 03/25/24 Rosuvastatin Calcium (Rosuvastatin Calcium) 5 Mg Tab, 1 TAB PO DAILY 11/02/23 Folic Acid (Folic Acid) 1 Mg Tab, 1 TAB PO DAILY 11/02/23 Doxazosin Mesylate (Doxazosin) 1 Mg Tab, 1 TAB PO DAILY 11/02/23 Linagliptin Base (TRADJENTA) 5 Mg Tab, 1 TAB PO DAILY 11/02/23 Pioglitazone Hydrochloride (PIOGLITAZONE HCL) 15 Mg Tab, 1 TAB PO DAILY 11/02/23 Lisinopril (Lisinopril) 20 Mg Tab, 1 TAB PO DAILY 11/02/23 Amlodipine Besylate (Amlodipine Besylate) 10 Mg Tab, 1 TAB PO DAILY 11/02/23 Metoprolol Tartrate (Lopressor) 25 Mg Tb, 1 TAB PO BID 11/02/23 Current Medications Current Medications Medications (Trade) Dose Ordered Sig/Calista Route PRN Reason Start Time Stop Time Status Last Admin Acetaminophen/ Hydrocodone Bitart ([place] 5/325MG Tab) 1 tab Q4HP PRN PO MODERATE PAIN (4-6 PAIN SCALE) 03/25/24 14:00 Ondansetron HCl (Zofran) 4 mg Q4HP PRN IV NAUSEA / VOMITING 03/25/24 14:00 Morphine Sulfate 2 mg Q4HPRN PRN IV SEVERE PAIN (7-10 PAIN SCALE) 03/25/24 14:00 Metoprolol Tartrate (Lopressor Tablet) 25 mg BID PO 03/25/24 22:00 03/25/24 15:25 DC Amlodipine Besylate (Norvasc Tablet) 10 mg DAILY PO 03/26/24 10:00 03/25/24 15:25 DC Atorvastatin Calcium (Lipitor) 20 mg HS PO 03/25/24 22:00 Tamsulosin HCl (Flomax) 0.4 mg DAILY PO 03/26/24 10:00 Pantoprazole Sodium (Protonix) 40 mg DAILY IV 03/25/24 15:30 03/25/24 16:32 Albuterol (Ventolin Medneb) 2.5 mg Q6HR NEB 03/25/24 18:00 Ipratropium [place] (Atrovent Medneb) 0.5 mg Q6HR NEB 03/25/24 18:00 Diagnostic Test (Pha) (Accu-Chek Comfort Curve T) 1 strip ACHS 03/25/24 17:00 03/25/24 17:27 Insulin Human Regular (InsuLIN R) ACHS SC 03/25/24 17:00 Dextrose 50 ml UD PRN IV Blood Sugar LESS THAN 60 03/25/24 15:30 Family History: Patient reports no known family medical history. Review of Systems Shortness of breath H&P Exam Vital Signs/I&O Vital Sign Date Time Temp Pulse Resp B/P (MAP) Pulse Ox O2 Delivery O2 Flow Rate FiO2 03/25/24 16:00 86 21 97/58 (71) 95 03/25/24 15:00 99.5 99.5 03/25/24 08:50 Nasal Cannula* 2 28 Physical Exam Elderly white male Mildly distress due to shortness of breath currently breathing on oxygen No murmur Abdomen is soft not firm nontender No pitting edema Labs/Diagnostic Data Labs/Diagnostic Data Laboratory Tests Test 03/25/24 18:15 03/25/24 17:23 03/25/24 12:03 03/25/24 10:09 Range/Units POC Glucose 103 70-106 mg/dl Sodium Level 142 141 136-145 mmol/L Potassium Level 3.8 3.5 3.5-5.1 mmol/L Chloride Level 108 H 106 98-107 mmol/L Carbon Dioxide Level 22 20 20-31 mmol/L Anion Gap 12 15 5-15 Blood Urea Nitrogen 48 H 48 H 9-23 mg/dL Creatinine 3.56 H 3.43 H 0.700-1.30 mg/dL Glomerular Filtration Rate Calc 17 18 >90 mL/min BUN/Creatinine Ratio 13.5 14.0 10.0-20.0 Serum Glucose 110 H 113 H 74-106 mg/dL Calcium Level 8.8 9.1 8.7-10.4 mg/dL Troponin I High Sensitivity 5 6 </=54 ng/L Test 03/25/24 08:47 Range/Units White Blood Count 3.1 L 4.4-10.8 10^3/uL Red Blood Count 4.24 L 4.5-5.90 10^6/uL Hemoglobin 12.8 L 13.5-17.5 g/dL Hematocrit 38.1 L 41.0-53.0 % Mean Corpuscular Volume 90.0 80.0-100.0 fL Mean Corpuscular Hemoglobin 30.2 28.0-32.0 pg Mean Corpuscular Hemoglobin Concent 33.5 32.0-36.0 g/dL Red Cell Distribution Width 16.6 H 11.8-14.3 % Platelet Count 186 140-450 10^3/uL Mean Platelet Volume 9.4 6.9-10.8 fL Neutrophils (%) (Auto) 37.0-80.0 % Lymphocytes (%) (Auto) 10.0-50.0 % Monocytes (%) (Auto) 0.0-12.0 % Basophils (%) (Auto) 0.0-2.0 % Neutrophils # (Auto) 1.6-8.6 10 ^3/uL Lymphocytes # (Auto) 0.4-5.4 10 ^3/uL Monocytes # (Auto) 0-1.3 10 ^3/uL Differential Total Cells Counted 100.0 100 Neutrophils % (Manual) 71 37.0-80.0 Band Neutrophils % (Manual) 7 Lymphocytes % (Manual) 15 10.0-50.0 Monocytes % (Manual) 7 0-12 Eosinophils % (Manual) 0 0-7 Basophils % (Manual) 0 0.0-2.0 Metamyelocytes % (manual) 0 Myelocytes % (Manual) 0 Promyelocytes % (Manual) 0 Blast Cells % (Manual) 0 Reactive Lymphocytes 0 Platelet Estimate Adequate Anisocytosis (manual) Slight Troponin I High Sensitivity 6 </=54 ng/L Assessment Acute kidney injury multifactorial but likely hemodynamically mediated ckd 3a SBO vs Illeus [place] kidney Persistent hypotension possibly secondary to blood pressure medication effect IV fluid ordered UA Clinically does not appear to be hypervolemic however patient is requiring 4 L of continuous oxygen Obtain BMP Obtain echo takes lisinopril at home on hold Currently on IV fluids recommend considering pressors if unable to maintain mean arterial pressure greater than 65 Currently getting Almanzar catheter placed Strict Is&Os Hold blood pressure medications at this time Plan discussed with: Patient FLORENTIN CHENG MD Mar 25, 2024 17:33
[2024-03-25] MEDS: LIDOCAINE 2% JELLY 11ml (GLYDO) UR ONE (18:12)
[2024-03-25 18:43] LABS: Urine Bacteria FEW /hpf (None Seen); Urine Blood 3+ /uL (Negative); Urine Clarity Ex.Turbid (Clear); Urine Color Dark-Yellow (Yellow); Urine Hyaline Cast FEW /lpf (0 - 2); Urine Mucus FEW (None Seen); Urine Protein, UAD 1+ (Negative); Urine Specific Gravity 1.024 (1.001-1.035); Urine Urobilinogen 2 mg/dL (Negative); Urine WBC 43 /hpf (0 - 3)
--- NOTE | 2024-03-25 19:00 | ECG ---
[facility] Test Date: 2024-03-25 Test Time: 08:34:57 Pat Name: JUAREZ WALDEN Department: ED Room: 0287 Gender: M [employer]: RUPERT : 1950 Requested By: JESÚS ZAPATA Order Number: [id number] Reading MD: Mukesh Florence Measurements Intervals [place] Rate: 94 P: 15 TX: 152 QRS: 0 QRSD: 97 T: -18 QT: 370 QTc: 463 Interpretive Statements Sinus rhythm Consider anterior infarct Nonspecific T abnormalities, inferior leads Baseline wander in lead(s) I,II,III,aVR,aVL,aVF,V1,V5,V6 Electronically Signed On 03-31-2024 13:22:07 PST by Mukesh Florence Please click the below link to view image of tracing.
[2024-03-25] MEDS: ALBUTEROL SULF 2.5 MG/0.5ML(0.5%) NEB SOLN NEB SCH (19:02)
[2024-03-25] MEDS: IPRATROPIUM BROM 0.5 MG/2.5ML INH SOL NEB SCH (19:02)
[2024-03-25] MEDS: cefTRIAXone 1GM/50ML D5W 50 ML IV SCH (20:15)
[2024-03-25] MEDS: SODIUM CHLORIDE 0.9% 1,000 ML IV SCH (20:30)
[2024-03-25 21:16] LABS: COVID19 ANTIGEN SOFIA FIA NEGATIVE (NEGATIVE); Rapid Influenza A Negative (Negative); Rapid Influenza B Negative (Negative)
[2024-03-25] MEDS: metroNIDAZOLE 500MG/100ML 100 ML IV SCH (21:45)
[2024-03-25] MEDS: ATORVASTATIN 20 MG TAB PO SCH (21:45)
[2024-03-25] MEDS ORDERED: METOPROLOL TARTRATE 25 MG TAB PO SCH (22:00)
[2024-03-26] VITALS (14 sets, daily range): BP systolic 109–134; BP diastolic 60–76; PULSE 80–130; RESP 17–28; TEMP 97.3–98.9; O2SAT 90–100
[2024-03-26 06:12] LABS: Basophils # (auto) 0 10 ^3/uL (0-0.2); Basophils % (auto) 0.1 % (0.0-2.0); Eosinophils # (auto) 0 10 ^3/uL (0-0.8); Eosinophils % (auto) 0.4 % (0.0-7.0); Hematocrit 30.2 % (41.0-53.0); Hemoglobin 10.3 g/dL (13.5-17.5); Lymphocytes # (auto) 0.5 10 ^3/uL (0.4-5.4); Lymphocytes % (auto) 10.7 % (10.0-50.0); Mean Corpuscular Hemoglobin 30.5 pg (28.0-32.0); Mean Corpuscular Hgb Conc. 34.3 g/dL (32.0-36.0); Monocytes # (auto) 0.7 10 ^3/uL (0-1.3); Monocytes % (auto) 14.7 % (0.0-12.0); Neutrophils # (auto) 3.7 10 ^3/uL (1.6-8.6); Neutrophils % (auto) 74.1 % (37.0-80.0); Platelet Count (auto) 173 10^3/uL (140-450); Red Blood Cells 3.39 10^6/uL (4.5-5.90); Red Cell Distribution Width 16.4 % (11.8-14.3)
[2024-03-26 06:44] LABS: Anion Gap 13 (5-15); Carbon Dioxide 19 mmol/L (20-31); Chloride 109 mmol/L (98-107); Potassium 4.4 mmol/L (3.5-5.1); Sodium 141 mmol/L (136-145)
[2024-03-26 06:45] LABS: Calcium 8.8 mg/dL (8.7-10.4)
[2024-03-26 06:50] LABS: Glucose 97 mg/dL (74-106)
[2024-03-26 06:54] LABS: Blood Urea Nitrogen 61 mg/dL (9-23)
[2024-03-26] MEDS ORDERED: DICL75TA2 PO (07:58)
[2024-03-26] MEDS ORDERED: EVOL140I SC (07:58)
[2024-03-26] MEDS ORDERED: OMEP20TA PO (07:58)
[2024-03-26] MEDS ORDERED: ASPI-543 PO (07:58)
[2024-03-26] MEDS: TAMSULOSIN HYDROCHLORIDE 0.4 MG CAP PO SCH (09:28)
[2024-03-26] MEDS ORDERED: amLODIPine BESYLATE 5 MG TAB PO SCH (10:00)
[2024-03-26] MEDS: FUROSEMIDE 100 MG/10ML VIAL IV ONE ×2 (11:45→14:21)
--- NOTE | 2024-03-26 12:44 | DVHPN2 ---
Progress Note - Dictate Date Seen: Mar 26, 2024 Medical Necessity Reason Pt with a Central, PICC or Fol: Yes The following are medically ne: Irving Catheter Subjective Patient's blood pressure is improved today However during interval patient is notably short of breath Patient appears winded with simple light conversation. vital signs Vital Sign Date Time Temp Pulse Resp B/P (MAP) Pulse Ox O2 Delivery O2 Flow Rate FiO2 03/26/24 08:00 98.2 114 22 134/76 (95) 92 98.2 03/26/24 08:00 Nasal Cannula* 4 36 Total Intake and Output 03/25/24 03/25/24 03/26/24 15:00 23:00 07:00 Intake Total 2600 ml 300 ml 0 ml Output Total 0 ml Balance 2600 ml 300 ml 0 ml medications Current Medications Medications Dose Ordered Sig/Calista Route Start Time Stop Time Status Last Admin Dose Admin Acetaminophen/ Hydrocodone Bitart 1 tab Q4HP PRN PO 03/25/24 14:00 Ondansetron HCl 4 mg Q4HP PRN IV 03/25/24 14:00 Morphine Sulfate 2 mg Q4HPRN PRN IV 03/25/24 14:00 Atorvastatin Calcium 20 mg HS PO 03/25/24 22:00 03/25/24 21:45 20 MG Tamsulosin HCl 0.4 mg DAILY PO 03/26/24 10:00 03/26/24 09:28 0.4 MG Pantoprazole Sodium 40 mg DAILY IV 03/25/24 15:30 03/26/24 09:28 40 MG Albuterol 2.5 mg Q6HR NEB 03/25/24 18:00 03/26/24 06:18 2.5 MG Ipratropium [place] 0.5 mg Q6HR NEB 03/25/24 18:00 03/26/24 06:18 0.5 MG Diagnostic Test (Pha) 1 strip ACHS 03/25/24 17:00 03/26/24 06:15 1 STRIP Insulin Human Regular ACHS SC 03/25/24 17:00 Dextrose 50 ml UD PRN IV 03/25/24 15:30 Ceftriaxone Sodium 50 ml @ 100 mls/hr DAILY@09 IV 03/25/24 20:15 03/26/24 09:28 100 MLS/HR Metronidazole 100 ml @ 100 mls/hr Q8HR IV 03/25/24 22:00 03/26/24 06:31 100 MLS/HR Sodium Chloride 1,000 ml @ 50 mls/hr Q20H IV 03/26/24 11:45 objective Elderly white male Tachypnea No murmur irregular rate and rhythm Abdomen is soft not firm nontender No pitting edema irving catheter urine color dark laboratory and microbiology Laboratory Tests 03/26/24 05:21 Test 03/26/24 05:21 Range/Units Serum Glucose 97 74-106 mg/dL Assessment/Plan Acute kidney injury multifactorial but likely hemodynamically mediated ckd 3a SBO vs Illeus [place] kidney Persistent hypotension possibly secondary to blood pressure medication effect Paroxysmal AFib? IV fluid ordered reduced rate Diuretic dose TRAM Obtain echo Rec cardiac evaluation rec r/o PE given high O2 requirements takes lisinopril at home on hold Currently getting Irving catheter placed Strict Is&Os Hold blood pressure medications at this time Plan discussed with: Patient FLORENTIN CHENG MD Mar 26, 2024 12:44
[2024-03-26] MEDS: SODIUM CHLORIDE 0.9% 1,000 ML IV SCH (13:08)
--- NOTE | 2024-03-26 13:08 | DVHPN2 ---
Reviewed: Care Plan, H&P, Labs, Medications, Previous Orders, Radiology Changes from previous H/P or p: No Changes Eyes: No Pain, No Vision change, No Conjunctivae inflammation, No Eyelid inflammation, No Other, No Redness ENT: No Ear pain, No Ear discharge, No Nose pain, No Nose discharge, No Nose congestion, No Mouth pain, No Mouth swelling, No Throat pain, No Throat swelling, No Other Cardiovascular: No Chest Pain, No Palpitations, No Orthopnea, No Paroxysmal Noc. Dyspnea, No Edema, No Lt Headedness, No Other Respiratory: No Cough, No Dry; Shortness of breath; No SOB with excertion, No Wheezing, No Hemoptysis, No Pleuritic Pain, No Sputum, No Other Gastrointestinal: No Nausea, No Vomiting; Abdominal Pain; No Diarrhea, No Constipation, No Melena, No Hematochezia, No Other Genitourinary: No Dysuria, No Frequency, No Incontinence, No Hematuria; R etention; No Other Musculoskeletal: No other, No neck pain, No shoulder pain, No arm pain, No back pain, No hand pain, No leg pain, No foot pain Skin: No Rash, No Lesions, No Jaundice, No Bruising, No Other Objective Vitals Vital Signs Date Time Temp Pulse Resp B/P (MAP) Pulse Ox O2 Delivery O2 Flow Rate FiO2 03/26/24 08:00 98.2 114 22 134/76 (95) 92 98.2 03/26/24 08:00 Nasal Cannula* 4 36 Intake/Output Intake and Output 03/26/24 07:00 Intake Total 2900 ml Output Total 0 ml Balance 2900 ml Intake Oral 0 ml IV Total 2900 ml Output Urine Total 0 ml # Bowel Movements 2 Medications Current Medications Medications Dose Ordered Sig/Calista Route Start Time Stop Time Status Last Admin Dose Admin Acetaminophen/ Hydrocodone Bitart 1 tab Q4HP PRN PO 03/25/24 14:00 Ondansetron HCl 4 mg Q4HP PRN IV 03/25/24 14:00 Morphine Sulfate 2 mg Q4HPRN PRN IV 03/25/24 14:00 Atorvastatin Calcium 20 mg HS PO 03/25/24 22:00 03/25/24 21:45 20 MG Tamsulosin HCl 0.4 mg DAILY PO 03/26/24 10:00 03/26/24 09:28 0.4 MG Pantoprazole Sodium 40 mg DAILY IV 03/25/24 15:30 03/26/24 09:28 40 MG Albuterol 2.5 mg Q6HR NEB 03/25/24 18:00 03/26/24 06:18 2.5 MG Ipratropium [place] 0.5 mg Q6HR NEB 03/25/24 18:00 03/26/24 06:18 0.5 MG Diagnostic Test (Pha) 1 strip ACHS 03/25/24 17:00 03/26/24 06:15 1 STRIP Insulin Human Regular ACHS SC 03/25/24 17:00 Dextrose 50 ml UD PRN IV 03/25/24 15:30 Ceftriaxone Sodium 50 ml @ 100 mls/hr DAILY@09 IV 03/25/24 20:15 03/26/24 09:28 100 MLS/HR Metronidazole 100 ml @ 100 mls/hr Q8HR IV 03/25/24 22:00 03/26/24 06:31 100 MLS/HR Sodium Chloride 1,000 ml @ 50 mls/hr Q20H IV 03/26/24 11:45 Laboratory Results Laboratory Tests 03/26/24 05:21 Chemistry Test 03/26/24 05:21 Calcium Level 8.8 mg/dL (8.7-10.4) Urinalysis Test 03/25/24 18:15 Urine Color Dark-yellow (Yellow) Urine Clarity Ex.turbid (Clear) Urine pH 5.0 (5.0-9.0) Urine Specific [place] 1.024 (1.001-1.035) Urine Protein 1+ (Negative) H Urine Ketones Negative (Negative) Urine Blood 3+ /uL (Negative) H Urine Nitrite Negative (Negative) Urine Bilirubin Negative (Negative) Urine Urobilinogen 2 mg/dL (Negative) H Urine Leukocyte Esterase Negative /uL (Negative) Urine RBC 788 /hpf (0 - 3) Urine WBC 43 /hpf (0 - 3) Urine Squamous Epithelial Cells Few /hpf (<5) Urine Bacteria Few /hpf (None Seen) H Urine Hyaline Casts Few /lpf (0 - 2) Urine Mucus Few (None Seen) Urine Glucose Normal mg/dL (Normal) Labs and/or images reviewed: Labs reviewed by me, Image(s) reviewed by me Assessment/Plan Assessment/Plan Septic shock with altered mental status low blood pressure and confusion secondary to small-bowel obstruction Rocephin Flagyl Acute dehydration: IV fluids Hypoxic respiratory failure: Oxygen by nasal cannula Abdominal Pain secondary to small-bowel obstruction: Consult for surgeon LUZ ELENA: Consult by Dr. Boswell appreciated Diabetes type 2 Hypertension Hypercholesterolemia BPH Acute urinary tract infection: Blood cultures urine cultures, continue Rocephin History of Laparoscopic appendectomy 11/04/[address] Howell Shanita test neg COVID test negative Time spent 70 minutes Advanced care planning time 20 minutes Patient is full code Patient Left AMA during the previous visit in November 2023 Plan discussed with: Patient Date of Service: Mar 26, 2024 Billing Provider: LOUISA BONILLA MD Common Visit Codes: [id number] CARE 30-74 MIN LOUISA BONILLA MD Mar 26, 2024 13:08
--- NOTE | 2024-03-26 14:09 | DVHINCON2 ---
Date of service: Mar 26, 2024 History of Present Illness 74-year-old male with a history of hypertension and diabetes admitted secondary to shortness of breath and abdominal pain without fevers, chills, nausea or vomiting. Patient reports improvement in his abdominal pain. Patient had two bowel movements yesterday. Patient just had clear liquid diet and was able to tolerate it. Past Medical History Hypertension. Diabetes. Morbid obesity. Past Surgical History Left shoulder surgery. Bilateral knee surgeries. Open appendectomy. And neck surgery. Family History: Chronic obstructive pulmonary disease G8 FATHER FH: emphysema G8 FATHER FH: stroke G8 MOTHER Hypertension G8 MOTHER Family History Noncontributory Social History Quit tobacco years ago. Occasional alcohol. Denies any IV drug use. Allergies: Coded Allergies: NO KNOWN ALLERGIES (Unverified , 01/03/16) Home Meds Reported Medications Evolocumab (Repatha) 140 Mg/Ml Inj, 140 MG SC, INJ 03/26/24 Omeprazole (Gnp Omeprazole) 20 Mg Tab, 40 MG PO DAILY, TAB 03/26/24 Diclofenac Sodium (Diclofenac Sodium) 75 Mg Tab, 75 MG PO DAILY, TAB 03/26/24 Aspirin (Aspir-Low) 81 Mg Tab, 81 MG PO DAILY for 30 Days, MG 03/26/24 Allopurinol (Allopurinol) 100 Mg Tab, 1 TAB PO DAILY 03/25/24 Tamsulosin Hcl (Tamsulosin Hcl) 0.4 Mg Cap, 1 CAP PO DAILY 03/25/24 Rosuvastatin Calcium (Rosuvastatin Calcium) 5 Mg Tab, 1 TAB PO DAILY 11/02/23 Folic Acid (Folic Acid) 1 Mg Tab, 1 TAB PO DAILY 11/02/23 Doxazosin Mesylate (Doxazosin) 1 Mg Tab, 1 TAB PO DAILY 11/02/23 Linagliptin Base (TRADJENTA) 5 Mg Tab, 1 TAB PO DAILY 11/02/23 Pioglitazone Hydrochloride (PIOGLITAZONE HCL) 15 Mg Tab, 1 TAB PO DAILY 11/02/23 Lisinopril (Lisinopril) 20 Mg Tab, 1 TAB PO DAILY 11/02/23 Amlodipine Besylate (Amlodipine Besylate) 10 Mg Tab, 1 TAB PO DAILY 11/02/23 Metoprolol Tartrate (Lopressor) 25 Mg Tb, 1 TAB PO BID 11/02/23 Current Medications Current Medications Medications (Trade) Dose Ordered Sig/Calista Route PRN Reason Start Time Stop Time Status Last Admin Metoprolol Tartrate (Lopressor Tablet) 25 mg BID PO 03/25/24 22:00 03/25/24 15:25 DC Amlodipine Besylate (Norvasc Tablet) 10 mg DAILY PO 03/26/24 10:00 03/25/24 15:25 DC Atorvastatin Calcium (Lipitor) 20 mg HS PO 03/25/24 22:00 03/25/24 21:45 Tamsulosin HCl (Flomax) 0.4 mg DAILY PO 03/26/24 10:00 03/26/24 09:28 Pantoprazole Sodium (Protonix) 40 mg DAILY IV 03/25/24 15:30 03/26/24 09:28 Albuterol (Ventolin Medneb) 2.5 mg Q6HR NEB 03/25/24 18:00 03/26/24 06:18 Ipratropium [place] (Atrovent Medneb) 0.5 mg Q6HR NEB 03/25/24 18:00 03/26/24 06:18 Diagnostic Test (Pha) (Accu-Chek Comfort Curve T) 1 strip ACHS 03/25/24 17:00 03/26/24 11:30 Insulin Human Regular (InsuLIN R) ACHS SC 03/25/24 17:00 Dextrose 50 ml UD PRN IV Blood Sugar LESS THAN 60 03/25/24 15:30 Ceftriaxone Sodium 50 ml @ 100 mls/hr DAILY@09 IV 03/25/24 20:15 03/26/24 09:28 Metronidazole 100 ml @ 100 mls/hr Q8HR IV 03/25/24 22:00 03/26/24 06:31 Sodium Chloride 1,000 ml @ 150 mls/hr Q6H40M IV 03/25/24 20:30 03/26/24 11:45 DC 03/26/24 09:29 Sodium Chloride 1,000 ml @ 50 mls/hr Q20H IV 03/26/24 11:45 03/26/24 13:08 Vital Signs Vital Signs Date Time Temp Pulse Resp B/P (MAP) Pulse Ox O2 Delivery O2 Flow Rate FiO2 03/26/24 12:00 97.3 101 22 109/68 (82) 91 97.3 03/26/24 08:00 Nasal Cannula* 4 36 Physical Exam GEN: Obese male in no acute distress. Alert. On nasal cannula. HEENT: Normocephalic atraumatic. Moist mucous membranes. Anicteric sclerae. CV: RRR Respiratory: Coarse breath sounds ABD: Well-healed incisional scar. Abdomen is obese, soft. Nontender nondistended. CT of the abdomen and pelvis: Multiple dilated small bowel loops measuring up to 4.1 cm without obvious transition zone. Labs/Diagnostic Data Labs Test 03/26/24 13:45 03/26/24 11:16 03/26/24 05:21 03/25/24 20:20 Range/Units POC Glucose 105 70-106 mg/dl White Blood Count 5.0 # 4.4-10.8 10^3/uL Red Blood Count 3.39 L 4.5-5.90 10^6/uL Hemoglobin 10.3 #L 13.5-17.5 g/dL Hematocrit 30.2 #L 41.0-53.0 % Mean Corpuscular Volume 89.0 80.0-100.0 fL Mean Corpuscular Hemoglobin 30.5 28.0-32.0 pg Mean Corpuscular Hemoglobin Concent 34.3 32.0-36.0 g/dL Red Cell Distribution Width 16.4 H 11.8-14.3 % Platelet Count 173 140-450 10^3/uL Mean Platelet Volume 8.5 6.9-10.8 fL Neutrophils (%) (Auto) 74.1 37.0-80.0 % Lymphocytes (%) (Auto) 10.7 10.0-50.0 % Monocytes (%) (Auto) 14.7 H 0.0-12.0 % Eosinophils (%) (Auto) 0.4 0.0-7.0 % Basophils (%) (Auto) 0.1 0.0-2.0 % Neutrophils # (Auto) 3.7 1.6-8.6 10 ^3/uL Lymphocytes # (Auto) 0.5 0.4-5.4 10 ^3/uL Monocytes # (Auto) 0.7 0-1.3 10 ^3/uL Eosinophils # (Auto) 0 0-0.8 10 ^3/uL Basophils # (Auto) 0 0-0.2 10 ^3/uL Nucleated Red Blood Cells 0.0 % Sodium Level 141 136-145 mmol/L Potassium Level 4.4 3.5-5.1 mmol/L Chloride Level 109 H 98-107 mmol/L Carbon Dioxide Level 19 L 20-31 mmol/L Anion Gap 13 5-15 Blood Urea Nitrogen 61 #H 9-23 mg/dL Creatinine 4.08 H 0.700-1.30 mg/dL Glomerular Filtration Rate Calc 15 >90 mL/min BUN/Creatinine Ratio 15.0 10.0-20.0 Serum Glucose 97 74-106 mg/dL Calcium Level 8.8 8.7-10.4 mg/dL Influenza Type A Antigen Negative Negative Influenza Type B Antigen Negative Negative SARS-CoV-2 Antigen (Rapid) Negative NEGATIVE Test 03/25/24 18:15 03/25/24 12:03 03/25/24 08:47 Range/Units Urine Color Dark-yellow Yellow Urine Clarity Ex.turbid Clear Urine pH 5.0 5.0-9.0 Urine Specific [place] 1.024 1.001-1.035 Urine Protein 1+ H Negative Urine Ketones Negative Negative Urine Blood 3+ H Negative /uL Urine Nitrite Negative Negative Urine Bilirubin Negative Negative Urine Urobilinogen 2 H Negative mg/dL Urine Leukocyte Esterase Negative Negative /uL Urine RBC 788 0 - 3 /hpf Urine WBC 43 0 - 3 /hpf Urine Squamous Epithelial Cells Few <5 /hpf Urine Bacteria Few H None Seen /hpf Urine Hyaline Casts Few 0 - 2 /lpf Urine Mucus Few None Seen Urine Glucose Normal Normal mg/dL Troponin I High Sensitivity 5 </=54 ng/L Differential Total Cells Counted 100.0 100 Neutrophils % (Manual) 71 37.0-80.0 Band Neutrophils % (Manual) 7 Lymphocytes % (Manual) 15 10.0-50.0 Monocytes % (Manual) 7 0-12 Eosinophils % (Manual) 0 0-7 Basophils % (Manual) 0 0.0-2.0 Metamyelocytes % (manual) 0 Myelocytes % (Manual) 0 Promyelocytes % (Manual) 0 Blast Cells % (Manual) 0 Reactive Lymphocytes 0 Platelet Estimate Adequate Anisocytosis (manual) Slight B-Type Natriuretic Peptide 73.44 0-100 pg/mL Assessment 1. Small-bowel obstruction likely improving. Plan/Recommendation 1. KUB. If it is unremarkable, continue advancing diet as tolerated. Plan discussed with: Patient EMBER DUNN MD Mar 26, 2024 14:09
[2024-03-26] MEDS ORDERED: FUROSEMIDE 100 MG/10ML VIAL IV ONE (14:15)
--- NOTE | 2024-03-26 14:48 | DVH ---
Date: 03/26/2024 02:03 PM Examination: XY KUB ABDOMEN SINGLE VIEW History: SBO Comparison: None TECHNIQUE: Frontal views of the abdomen was obtained. FINDINGS: Gaseous distention of the proximal small bowel suggesting small bowel obstruction. The lung bases are unremarkable. No acute osseous abnormality identified. IMPRESSION: 1. Gaseous distention of the proximal small bowel consistent with small-bowel obstruction.
--- NOTE | 2024-03-26 23:45 | DVHINCON2 ---
Date of service: Mar 26, 2024 Referring Physician Jennifer Thakkar Reason for Consultation Abdominal pain History of Present Illness 74-year-old male with a history of hypertension and diabetes admitted secondary to shortness of breath and abdominal pain without fevers, chills, nausea or vomiting. Patient stated this is symptoms started after he received a flu vaccine one week ago. Patient was hypotensive in the ambulance but he responded to IV hydration. Patient reports improvement in his abdominal pain. Patient had two bowel movements yesterday prior to his presentation. Patient just had clear liquid diet and was able to tolerate it. Past Medical History Past Medical History DM, HTN Past Surgical History Past Surgical History Laparoscopic appendectomy Left shoulder surgery Knee surgery Bilateral knee surgeries Family History: Chronic obstructive pulmonary disease G8 FATHER FH: emphysema G8 FATHER FH: stroke G8 MOTHER Hypertension G8 MOTHER Allergies: Coded Allergies: NO KNOWN ALLERGIES (Unverified , 01/03/16) Home Meds Reported Medications Evolocumab (Repatha) 140 Mg/Ml Inj, 140 MG SC, INJ 03/26/24 Omeprazole (Gnp Omeprazole) 20 Mg Tab, 40 MG PO DAILY, TAB 03/26/24 Diclofenac Sodium (Diclofenac Sodium) 75 Mg Tab, 75 MG PO DAILY, TAB 03/26/24 Aspirin (Aspir-Low) 81 Mg Tab, 81 MG PO DAILY for 30 Days, MG 03/26/24 Allopurinol (Allopurinol) 100 Mg Tab, 1 TAB PO DAILY 03/25/24 Tamsulosin Hcl (Tamsulosin Hcl) 0.4 Mg Cap, 1 CAP PO DAILY 03/25/24 Rosuvastatin Calcium (Rosuvastatin Calcium) 5 Mg Tab, 1 TAB PO DAILY 11/02/23 Folic Acid (Folic Acid) 1 Mg Tab, 1 TAB PO DAILY 11/02/23 Doxazosin Mesylate (Doxazosin) 1 Mg Tab, 1 TAB PO DAILY 11/02/23 Linagliptin Base (TRADJENTA) 5 Mg Tab, 1 TAB PO DAILY 11/02/23 Pioglitazone Hydrochloride (PIOGLITAZONE HCL) 15 Mg Tab, 1 TAB PO DAILY 11/02/23 Lisinopril (Lisinopril) 20 Mg Tab, 1 TAB PO DAILY 11/02/23 Amlodipine Besylate (Amlodipine Besylate) 10 Mg Tab, 1 TAB PO DAILY 11/02/23 Metoprolol Tartrate (Lopressor) 25 Mg Tb, 1 TAB PO BID 11/02/23 Current Medications Current Medications Medications (Trade) Dose Ordered Sig/Calista Route PRN Reason Start Time Stop Time Status Last Admin Amlodipine Besylate (Norvasc Tablet) 10 mg DAILY PO 03/26/24 10:00 03/25/24 15:25 DC Tamsulosin HCl (Flomax) 0.4 mg DAILY PO 03/26/24 10:00 03/26/24 09:28 Sodium Chloride 1,000 ml @ 50 mls/hr Q20H IV 03/26/24 11:45 03/26/24 13:08 Vital Signs Vital Signs Date Time Temp Pulse Resp B/P (MAP) Pulse Ox O2 Delivery O2 Flow Rate FiO2 03/26/24 21:00 98.0 104 22 117/72 (87) 90 98.0 03/26/24 18:48 Nasal Cannula* 4 36 Physical Exam GEN: Obese male in no acute distress. Alert. On nasal cannula. HEENT: Normocephalic atraumatic. Moist mucous membranes. Anicteric sclerae. CV: RRR; Respiratory: Coarse breath sounds ABD: Well-healed incisional scar. Abdomen is obese, soft. Nontender nondistended. EXT : No clubbing cyanosis or edema Labs/Diagnostic Data Labs Test 03/26/24 21:05 03/26/24 13:45 03/26/24 05:21 03/25/24 20:20 Range/Units POC Glucose 112 H 70-106 mg/dl D-Dimer, Quantitative 14.91 H 0.0-0.49 mg/L FEU White Blood Count 5.0 # 4.4-10.8 10^3/uL Red Blood Count 3.39 L 4.5-5.90 10^6/uL Hemoglobin 10.3 #L 13.5-17.5 g/dL Hematocrit 30.2 #L 41.0-53.0 % Mean Corpuscular Volume 89.0 80.0-100.0 fL Mean Corpuscular Hemoglobin 30.5 28.0-32.0 pg Mean Corpuscular Hemoglobin Concent 34.3 32.0-36.0 g/dL Red Cell Distribution Width 16.4 H 11.8-14.3 % Platelet Count 173 140-450 10^3/uL Mean Platelet Volume 8.5 6.9-10.8 fL Neutrophils (%) (Auto) 74.1 37.0-80.0 % Lymphocytes (%) (Auto) 10.7 10.0-50.0 % Monocytes (%) (Auto) 14.7 H 0.0-12.0 % Eosinophils (%) (Auto) 0.4 0.0-7.0 % Basophils (%) (Auto) 0.1 0.0-2.0 % Neutrophils # (Auto) 3.7 1.6-8.6 10 ^3/uL Lymphocytes # (Auto) 0.5 0.4-5.4 10 ^3/uL Monocytes # (Auto) 0.7 0-1.3 10 ^3/uL Eosinophils # (Auto) 0 0-0.8 10 ^3/uL Basophils # (Auto) 0 0-0.2 10 ^3/uL Nucleated Red Blood Cells 0.0 % Sodium Level 141 136-145 mmol/L Potassium Level 4.4 3.5-5.1 mmol/L Chloride Level 109 H 98-107 mmol/L Carbon Dioxide Level 19 L 20-31 mmol/L Anion Gap 13 5-15 Blood Urea Nitrogen 61 #H 9-23 mg/dL Creatinine 4.08 H 0.700-1.30 mg/dL Glomerular Filtration Rate Calc 15 >90 mL/min BUN/Creatinine Ratio 15.0 10.0-20.0 Serum Glucose 97 74-106 mg/dL Calcium Level 8.8 8.7-10.4 mg/dL Influenza Type A Antigen Negative Negative Influenza Type B Antigen Negative Negative SARS-CoV-2 Antigen (Rapid) Negative NEGATIVE Test 03/25/24 18:15 03/25/24 12:03 03/25/24 08:47 Range/Units Urine Color Dark-yellow Yellow Urine Clarity Ex.turbid Clear Urine pH 5.0 5.0-9.0 Urine Specific [place] 1.024 1.001-1.035 Urine Protein 1+ H Negative Urine Ketones Negative Negative Urine Blood 3+ H Negative /uL Urine Nitrite Negative Negative Urine Bilirubin Negative Negative Urine Urobilinogen 2 H Negative mg/dL Urine Leukocyte Esterase Negative Negative /uL Urine RBC 788 0 - 3 /hpf Urine WBC 43 0 - 3 /hpf Urine Squamous Epithelial Cells Few <5 /hpf Urine Bacteria Few H None Seen /hpf Urine Hyaline Casts Few 0 - 2 /lpf Urine Mucus Few None Seen Urine Glucose Normal Normal mg/dL Troponin I High Sensitivity 5 </=54 ng/L Differential Total Cells Counted 100.0 100 Neutrophils % (Manual) 71 37.0-80.0 Band Neutrophils % (Manual) 7 Lymphocytes % (Manual) 15 10.0-50.0 Monocytes % (Manual) 7 0-12 Eosinophils % (Manual) 0 0-7 Basophils % (Manual) 0 0.0-2.0 Metamyelocytes % (manual) 0 Myelocytes % (Manual) 0 Promyelocytes % (Manual) 0 Blast Cells % (Manual) 0 Reactive Lymphocytes 0 Platelet Estimate Adequate Anisocytosis (manual) Slight B-Type Natriuretic Peptide 73.44 0-100 pg/mL CHEST ABD XRAY TODAY IMPRESSION: 1. Gaseous distention of the proximal small bowel consistent with small-bowel obstruction. ABD PELVIC CT SCAN IMPRESSION: 1. Multiple dilated small bowel loops measuring up to 4.1 cm in diameter. There are nondilated ileal loops seen in the right lower quadrant abdomen. There is no obvious transition zone. Findings May relate to ileus versus partial small bowel obstruction. Clinical correlation is recommended. 2. 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 3. Small amount of ascites and edematous changes in the mesentery. 4. Sigmoid diverticulosis. 5. Chronic granulomatous disease. Problems(with codes): (1) Gaseous abdominal distention (2) Abnormal finding on GI tract imaging (3) Hypotension (4) Acute abdominal pain (5) Shortness of breath Plan/Recommendation Plan I would recommend Gastrografin small-bowel series rule out bowel obstruction and for therapeutic benefit Continue supportive care If the Gastrografin small bowel is negative advance diet as tolerated Outpatient follow up with GI for elective colonoscopy if not recently done Appreciate surgical consult Plan discussed with: Patient LEANNA CONTRERAS MD Mar 26, 2024 23:45
[2024-03-27] VITALS (13 sets, daily range): BP systolic 101–148; BP diastolic 69–93; PULSE 60–135; RESP 17–22; TEMP 97.4–98.4; O2SAT 91–98
[2024-03-27 06:57] LABS: Basophils # (auto) 0 10 ^3/uL (0-0.2); Basophils % (auto) 0.1 % (0.0-2.0); Eosinophils # (auto) 0.1 10 ^3/uL (0-0.8); Eosinophils % (auto) 1.3 % (0.0-7.0); Hematocrit 32.9 % (41.0-53.0); Lymphocytes # (auto) 0.4 10 ^3/uL (0.4-5.4); Lymphocytes % (auto) 7.6 % (10.0-50.0); Mean Corpuscular Hemoglobin 29.9 pg (28.0-32.0); Mean Corpuscular Hgb Conc. 33.5 g/dL (32.0-36.0); Mean Corpuscular Volume 89.3 fL (80.0-100.0); Monocytes # (auto) 0.7 10 ^3/uL (0-1.3); Monocytes % (auto) 14.9 % (0.0-12.0); Neutrophils # (auto) 3.8 10 ^3/uL (1.6-8.6); Neutrophils % (auto) 76.1 % (37.0-80.0); Nucleated Red Blood Cells % 0.1 %; Platelet Count (auto) 217 10^3/uL (140-450); Red Blood Cells 3.68 10^6/uL (4.5-5.90); Red Cell Distribution Width 16.3 % (11.8-14.3)
[2024-03-27 07:16] LABS: Alanine Aminotransferase 22 U/L (7-40); Albumin 3.8 g/dL (3.2-4.8); Alkaline Phosphatase 110 U/L (46-116); Anion Gap 14 (5-15); Aspartate Aminotransferase 29 U/L (13-40); BUN/Creatinine Ratio 18.6 (10.0-20.0); Bilirubin, Total 0.4 mg/dL (0.2-1.0); Blood Urea Nitrogen 66 mg/dL (9-23); Calcium 9.4 mg/dL (8.7-10.4); Carbon Dioxide 17 mmol/L (20-31); Chloride 110 mmol/L (98-107); Glucose 98 mg/dL (74-106); Potassium 4.3 mmol/L (3.5-5.1); Sodium 141 mmol/L (136-145); Total Protein 6.6 g/dL (5.7-8.2)
--- NOTE | 2024-03-27 08:41 | DVHPN2 ---
Progress Note - Dictate Date Seen: Mar 27, 2024 Medical Necessity Reason Pt with a Central, PICC or Fol: Yes The following are medically ne: Almanzar Catheter Subjective E: no major events o/n. no complaints. denies abd pain. malgorzata clear liquid diet. no flatus/BM. vital signs Vital Sign Date Time Temp Pulse Resp B/P (MAP) Pulse Ox O2 Delivery O2 Flow Rate FiO2 03/27/24 07:10 118 22 94 03/27/24 07:04 Nasal Cannula 4.0 03/27/24 07:04 36 03/27/24 05:00 97.4 127/75 (92) 97.4 Total Intake and Output 03/26/24 03/26/24 03/27/24 15:00 23:00 07:00 Intake Total 575 ml 1150 ml 800 ml Output Total 600 ml 1700 ml Balance 575 ml 550 ml -900 ml medications Current Medications Medications Dose Ordered Sig/Calista Route Start Time Stop Time Status Last Admin Dose Admin Acetaminophen/ Hydrocodone Bitart 1 tab Q4HP PRN PO 03/25/24 14:00 Ondansetron HCl 4 mg Q4HP PRN IV 03/25/24 14:00 Morphine Sulfate 2 mg Q4HPRN PRN IV 03/25/24 14:00 Atorvastatin Calcium 20 mg HS PO 03/25/24 22:00 03/27/24 03:02 20 MG Tamsulosin HCl 0.4 mg DAILY PO 03/26/24 10:00 03/26/24 09:28 0.4 MG Pantoprazole Sodium 40 mg DAILY IV 03/25/24 15:30 03/26/24 09:28 40 MG Albuterol 2.5 mg Q6HR NEB 03/25/24 18:00 03/27/24 07:04 2.5 MG Ipratropium [place] 0.5 mg Q6HR NEB 03/25/24 18:00 03/27/24 07:04 0.5 MG Diagnostic Test (Pha) 1 strip ACHS 03/25/24 17:00 03/27/24 07:22 1 STRIP Insulin Human Regular ACHS SC 03/25/24 17:00 Dextrose 50 ml UD PRN IV 03/25/24 15:30 Ceftriaxone Sodium 50 ml @ 100 mls/hr DAILY@09 IV 03/25/24 20:15 03/26/24 09:28 100 MLS/HR Metronidazole 100 ml @ 100 mls/hr Q8HR IV 03/25/24 22:00 03/27/24 07:24 100 MLS/HR Sodium Chloride 1,000 ml @ 50 mls/hr Q20H IV 03/26/24 11:45 03/26/24 13:08 50 MLS/HR objective GEN: NAD ABD: soft. NT/ND KUB: persistent dilatation of prox bowel. laboratory and microbiology Laboratory Tests 03/27/24 05:53 Test 03/27/24 05:53 Range/Units Serum Glucose 98 74-106 mg/dL Assessment/Plan A: 1. pSBO P: 1. SBFT with gastrografin. Plan discussed with: Patient EMBER DUNN MD Mar 27, 2024 08:41
[2024-03-27] MEDS ORDERED: GASTROGRAFIN 120 ML SOL ONE (08:47)
--- NOTE | 2024-03-27 11:16 | DVHPN2 ---
Reviewed: Care Plan, H&P, Labs, Medications, Previous Orders, Radiology Changes from previous H/P or p: No Changes Eyes: No Pain, No Vision change, No Conjunctivae inflammation, No Eyelid inflammation, No Other, No Redness ENT: No Ear pain, No Ear discharge, No Nose pain, No Nose discharge, No Nose congestion, No Mouth pain, No Mouth swelling, No Throat pain, No Throat swelling, No Other Cardiovascular: No Chest Pain, No Palpitations, No Orthopnea, No Paroxysmal Noc. Dyspnea, No Edema, No Lt Headedness, No Other Respiratory: No Cough, No Dry; Shortness of breath; No SOB with excertion, No Wheezing, No Hemoptysis, No Pleuritic Pain, No Sputum, No Other Gastrointestinal: No Nausea, No Vomiting; Abdominal Pain; No Diarrhea, No Constipation, No Melena, No Hematochezia, No Other Genitourinary: No Dysuria, No Frequency, No Incontinence, No Hematuria; R etention; No Other Musculoskeletal: No other, No neck pain, No shoulder pain, No arm pain, No back pain, No hand pain, No leg pain, No foot pain Skin: No Rash, No Lesions, No Jaundice, No Bruising, No Other Objective Vitals Vital Signs Date Time Temp Pulse Resp B/P (MAP) Pulse Ox O2 Delivery O2 Flow Rate FiO2 03/27/24 09:00 97.6 132 22 114/70 (85) 93 97.6 03/27/24 08:00 Nasal Cannula* 4 36 Intake/Output Intake and Output 03/27/24 07:00 Intake Total 2525 ml Output Total 2300 ml Balance 225 ml Intake Oral 1600 ml IV Total 925 ml Output Urine Total 2300 ml Medications Current Medications Medications Dose Ordered Sig/Calista Route Start Time Stop Time Status Last Admin Dose Admin Acetaminophen/ Hydrocodone Bitart 1 tab Q4HP PRN PO 03/25/24 14:00 Ondansetron HCl 4 mg Q4HP PRN IV 03/25/24 14:00 Morphine Sulfate 2 mg Q4HPRN PRN IV 03/25/24 14:00 Atorvastatin Calcium 20 mg HS PO 03/25/24 22:00 03/27/24 03:02 20 MG Tamsulosin HCl 0.4 mg DAILY PO 03/26/24 10:00 03/27/24 09:52 0.4 MG Pantoprazole Sodium 40 mg DAILY IV 03/25/24 15:30 03/27/24 09:52 40 MG Albuterol 2.5 mg Q6HR NEB 03/25/24 18:00 03/27/24 07:04 2.5 MG Ipratropium [place] 0.5 mg Q6HR NEB 03/25/24 18:00 03/27/24 07:04 0.5 MG Diagnostic Test (Pha) 1 strip ACHS 03/25/24 17:00 03/27/24 07:22 1 STRIP Insulin Human Regular ACHS SC 03/25/24 17:00 Dextrose 50 ml UD PRN IV 03/25/24 15:30 Ceftriaxone Sodium 50 ml @ 100 mls/hr DAILY@09 IV 03/25/24 20:15 03/27/24 09:52 100 MLS/HR Metronidazole 100 ml @ 100 mls/hr Q8HR IV 03/25/24 22:00 03/27/24 07:24 100 MLS/HR Sodium Chloride 1,000 ml @ 50 mls/hr Q20H IV 03/26/24 11:45 03/26/24 13:08 50 MLS/HR Laboratory Results Laboratory Tests 03/27/24 05:53 Chemistry Test 03/27/24 05:53 Albumin 3.8 g/dL (3.2-4.8) Calcium Level 9.4 mg/dL (8.7-10.4) Total Protein 6.6 g/dL (5.7-8.2) Coagulation Test 03/26/24 13:45 D-Dimer, Quantitative 14.91 mg/L FEU (0.0-0.49) H LFT Test 03/27/24 05:53 Alanine Aminotransferase (ALT) 22 U/L (7-40) Alkaline Phosphatase 110 U/L (46-116) Aspartate Amino Transferase (AST) 29 U/L (13-40) Total Bilirubin 0.4 mg/dL (0.2-1.0) Urinalysis Test 03/25/24 18:15 Urine Color Dark-yellow (Yellow) Urine Clarity Ex.turbid (Clear) Urine pH 5.0 (5.0-9.0) Urine Specific [place] 1.024 (1.001-1.035) Urine Protein 1+ (Negative) H Urine Ketones Negative (Negative) Urine Blood 3+ /uL (Negative) H Urine Nitrite Negative (Negative) Urine Bilirubin Negative (Negative) Urine Urobilinogen 2 mg/dL (Negative) H Urine Leukocyte Esterase Negative /uL (Negative) Urine RBC 788 /hpf (0 - 3) Urine WBC 43 /hpf (0 - 3) Urine Squamous Epithelial Cells Few /hpf (<5) Urine Bacteria Few /hpf (None Seen) H Urine Hyaline Casts Few /lpf (0 - 2) Urine Mucus Few (None Seen) Urine Glucose Normal mg/dL (Normal) Labs and/or images reviewed: Labs reviewed by me, Image(s) reviewed by me Assessment/Plan Assessment/Plan Septic shock with altered mental status low blood pressure and confusion secondary to small-bowel obstruction Rocephin Flagyl Acute dehydration: IV fluids Hypoxic respiratory failure: Oxygen by nasal cannula Abdominal Pain secondary to small-bowel obstruction: Consult for surgeon appreciated, awaiting Gastrografin study LUZ ELENA: Consult by Dr. Boswell appreciated Diabetes type 2 Hypertension Hypercholesterolemia BPH Acute urinary tract infection: Blood cultures urine cultures, continue Rocephin History of Laparoscopic appendectomy 11/04/[address] Howell Shanita test neg COVID test negative Time spent 70 minutes Advanced care planning time 20 minutes Patient is full code Patient Left AMA during the previous visit in November 2023 Plan discussed with: Patient My Orders Orders - LOUISA BONILLA MD Procedure Category Date Status Time Blood Culture KRISTAN 03/26/24 In Process 13:10 Urine Bacterial KRISTAN 03/26/24 Logged Culture 13:10 * Surgical Consult CONS 03/26/24 Transmitted Complete Blood Count LAB 03/28/24 Verified 05:00 Complete Blood Count LAB 03/29/24 Verified 05:00 Complete Blood Count LAB 03/30/24 Verified 05:00 Complete Blood Count LAB 03/31/24 Verified 05:00 Comprehensive LAB 03/28/24 Verified Metabolic Panel 05:00 Comprehensive LAB 03/29/24 Verified Metabolic Panel 05:00 Comprehensive LAB 03/30/24 Verified Metabolic Panel 05:00 Comprehensive LAB 03/31/24 Verified Metabolic Panel 05:00 Date of Service: Mar 27, 2024 Billing Provider: LOUISA BONILLA MD Common Visit Codes: [id number] INP/OBS CARE(HIGH) LOUISA BONILLA MD Mar 27, 2024 11:16
--- NOTE | 2024-03-27 14:46 | DVHPN2 ---
Progress Note - Dictate Date Seen: Mar 27, 2024 Medical Necessity Reason Pt with a Central, PICC or Fol: Yes The following are medically ne: Almanzar Catheter Subjective Patient is lying comfortably No bowel movements recorded today Patient undergoing small-bowel series vital signs Vital Sign Date Time Temp Pulse Resp B/P (MAP) Pulse Ox O2 Delivery O2 Flow Rate FiO2 03/27/24 11:56 93 Nasal Cannula* 4 36 03/27/24 09:00 97.6 132 22 114/70 (85) 97.6 Total Intake and Output 03/26/24 03/26/24 03/27/24 15:00 23:00 07:00 Intake Total 575 ml 1150 ml 800 ml Output Total 600 ml 1700 ml Balance 575 ml 550 ml -900 ml medications Current Medications Medications Dose Ordered Sig/Calista Route Start Time Stop Time Status Last Admin Dose Admin Acetaminophen/ Hydrocodone Bitart 1 tab Q4HP PRN PO 03/25/24 14:00 Ondansetron HCl 4 mg Q4HP PRN IV 03/25/24 14:00 Morphine Sulfate 2 mg Q4HPRN PRN IV 03/25/24 14:00 Atorvastatin Calcium 20 mg HS PO 03/25/24 22:00 03/27/24 03:02 20 MG Tamsulosin HCl 0.4 mg DAILY PO 03/26/24 10:00 03/27/24 09:52 0.4 MG Pantoprazole Sodium 40 mg DAILY IV 03/25/24 15:30 03/27/24 09:52 40 MG Albuterol 2.5 mg Q6HR NEB 03/25/24 18:00 03/27/24 07:04 2.5 MG Ipratropium [place] 0.5 mg Q6HR NEB 03/25/24 18:00 03/27/24 07:04 0.5 MG Diagnostic Test (Pha) 1 strip ACHS 03/25/24 17:00 03/27/24 11:30 1 STRIP Insulin Human Regular ACHS SC 03/25/24 17:00 Dextrose 50 ml UD PRN IV 03/25/24 15:30 Ceftriaxone Sodium 50 ml @ 100 mls/hr DAILY@09 IV 03/25/24 20:15 03/27/24 09:52 100 MLS/HR Metronidazole 100 ml @ 100 mls/hr Q8HR IV 03/25/24 22:00 03/27/24 14:38 100 MLS/HR Sodium Chloride 1,000 ml @ 50 mls/hr Q20H IV 03/26/24 11:45 03/27/24 07:45 50 MLS/HR objective GEN: Obese male in no acute distress. Alert. On nasal cannula. HEENT: Normocephalic atraumatic. Moist mucous membranes. Anicteric sclerae. CV: RRR; Respiratory: Coarse breath sounds ABD: Well-healed incisional scar. Abdomen is obese, soft. Nontender nondistended. EXT : No clubbing cyanosis or edema laboratory and microbiology Laboratory Tests 03/27/24 05:53 Test 03/27/24 05:53 Range/Units Serum Glucose 98 74-106 mg/dL Problems(with codes): (1) Abnormal finding on GI tract imaging (2) Gaseous abdominal distention (3) Shortness of breath (4) Acute abdominal pain Prognosis Plan Patient is undergoing a small-bowel series Further recommendations will be made pending results of the above Continue IV fluid hydration Ice chips as tolerated On IV antibiotics, pain control and IV PPI Plan discussed with: Patient LEANNA CONTRERAS MD Mar 27, 2024 14:46
--- NOTE | 2024-03-27 14:49 | DVHPN2 ---
Progress Note - Dictate Date Seen: Mar 27, 2024 Medical Necessity Reason Pt with a Central, PICC or Fol: Yes The following are medically ne: [place] Catheter Subjective HR 120-130s vital signs Vital Sign Date Time Temp Pulse Resp B/P (MAP) Pulse Ox O2 Delivery O2 Flow Rate FiO2 03/27/24 11:56 93 Nasal Cannula* 4 36 03/27/24 09:00 97.6 132 22 114/70 (85) 97.6 Total Intake and Output 03/26/24 03/26/24 03/27/24 15:00 23:00 07:00 Intake Total 575 ml 1150 ml 800 ml Output Total 600 ml 1700 ml Balance 575 ml 550 ml -900 ml medications Current Medications Medications Dose Ordered Sig/Calista Route Start Time Stop Time Status Last Admin Dose Admin Acetaminophen/ Hydrocodone Bitart 1 tab Q4HP PRN PO 03/25/24 14:00 Ondansetron HCl 4 mg Q4HP PRN IV 03/25/24 14:00 Morphine Sulfate 2 mg Q4HPRN PRN IV 03/25/24 14:00 Atorvastatin Calcium 20 mg HS PO 03/25/24 22:00 03/27/24 03:02 20 MG Tamsulosin HCl 0.4 mg DAILY PO 03/26/24 10:00 03/27/24 09:52 0.4 MG Pantoprazole Sodium 40 mg DAILY IV 03/25/24 15:30 03/27/24 09:52 40 MG Albuterol 2.5 mg Q6HR NEB 03/25/24 18:00 03/27/24 07:04 2.5 MG Ipratropium [place] 0.5 mg Q6HR NEB 03/25/24 18:00 03/27/24 07:04 0.5 MG Diagnostic Test (Pha) 1 strip ACHS 03/25/24 17:00 03/27/24 11:30 1 STRIP Insulin Human Regular ACHS SC 03/25/24 17:00 Dextrose 50 ml UD PRN IV 03/25/24 15:30 Ceftriaxone Sodium 50 ml @ 100 mls/hr DAILY@09 IV 03/25/24 20:15 03/27/24 09:52 100 MLS/HR Metronidazole 100 ml @ 100 mls/hr Q8HR IV 03/25/24 22:00 03/27/24 14:38 100 MLS/HR Sodium Chloride 1,000 ml @ 50 mls/hr Q20H IV 03/26/24 11:45 03/27/24 07:45 50 MLS/HR objective Elderly white male Tachypnea No murmur irregular rate and rhythm Abdomen is soft not firm nontender No pitting edema irving catheter urine color dark laboratory and microbiology Laboratory Tests 03/27/24 05:53 Test 03/27/24 05:53 Range/Units Serum Glucose 98 74-106 mg/dL Assessment/Plan Acute kidney injury multifactorial but likely hemodynamically mediated ckd 3a SBO vs Illeus Horseshoe kidney Persistent hypotension possibly secondary to blood pressure medication effect Paroxysmal AFib? GI and Surgery on case for SBO IV fluid ordered reduced rate Obtain echo Rec cardiac evaluation elevated D-Dmer rec r/o PE given high O2 requirements takes lisinopril at home on hold Currently getting Irving catheter placed Strict Is&Os Hold blood pressure medications at this time Plan discussed with: Patient, Other FLORENTIN CHENG MD Mar 27, 2024 14:49
--- NOTE | 2024-03-27 15:39 | DVH ---
Procedure: XY SMALL BOWEL SERIES-W GASTROGRA Reason for study/Clinical History: r/o sbo Comparison Study: None available at time of dictation. Technique: Single contrast small bowel series performed. FINDINGS/IMPRESSION: Initial employment interviewer view of the abdomen and pelvis appears demonstrates no acute process. Contrast is identified within the colon by 3 HOURS. This represents a normal small bowel transit marcelo dueñas
[2024-03-27] MEDS: methylPREDNISolone SOD SUCC 125 MG/2 ML VL IV ONE (22:42)
[2024-03-27] MEDS: LEVALBUTEROL HCL 1.25 MG/3 ML NEB NEB SCH (23:47)
[2024-03-28] VITALS (8 sets, daily range): BP systolic 125–150; BP diastolic 65–89; PULSE 94–133; RESP 16–20; TEMP 97.9–98.4; O2SAT 92–96
[2024-03-28 06:30] LABS: Hematocrit 34.5 % (41.0-53.0); Hemoglobin 11.5 g/dL (13.5-17.5); Mean Corpuscular Hemoglobin 29.7 pg (28.0-32.0); Mean Corpuscular Hgb Conc. 33.4 g/dL (32.0-36.0); Platelet Count (auto) 246 10^3/uL (140-450); Red Blood Cells 3.87 10^6/uL (4.5-5.90); White Blood Cell 5.7 10^3/uL (4.4-10.8)
[2024-03-28 06:54] LABS: Alanine Aminotransferase 22 U/L (7-40); Albumin 3.9 g/dL (3.2-4.8); Alkaline Phosphatase 142 U/L (46-116); Anion Gap 17 (5-15); Aspartate Aminotransferase 20 U/L (13-40); BUN/Creatinine Ratio 24.6 (10.0-20.0); Bilirubin, Total 0.3 mg/dL (0.2-1.0); Blood Urea Nitrogen 64 mg/dL (9-23); Calcium 9.5 mg/dL (8.7-10.4); Carbon Dioxide 15 mmol/L (20-31); Chloride 112 mmol/L (98-107); Glucose 167 mg/dL (74-106); Potassium 4.5 mmol/L (3.5-5.1); Sodium 144 mmol/L (136-145); Total Protein 6.9 g/dL (5.7-8.2)
[2024-03-28 07:06] LABS: Basophils % (manual) 0 (0.0-2.0); Blast Cells 0; Eosinophils % (manual) 0 (0-7); Metamyelocytes % 0; Myelocytes % 0; Promyelocytes % 0; Reactive Lymphocytes 0
[2024-03-28 07:51] LABS: Band Neutrophils % (manual) 5; Giant Platelets Few; Lymphocytes % (manual) 7 (10.0-50.0); Monocytes % (manual) 7 (0-12); Platelet Estimate Adequate
[2024-03-28] MEDS: SODIUM BICARB 50mEq/50ml Vial 50 ML in D5W 5% 1,000 ML IV ONE (12:07)
--- NOTE | 2024-03-28 13:11 | DVHPN2 ---
Progress Note Date Seen: Mar 28, 2024 Medical Necessity Reason Pt with a Central, PICC or Fol: Yes The following are medically ne: Almanzar Catheter Subjective Patient reports: No new complaints, Feels better Review of Systems: HEENT:Normal, CVS:Normal, RESPIRATORY:Normal, GI:Abnormal (diarrhoea), :Normal, MSK:Normal, NEURO:Normal Objective vital signs Vital Sign Date Time Temp Pulse Resp B/P (MAP) Pulse Ox O2 Delivery O2 Flow Rate FiO2 03/28/24 09:23 97.9 115 17 125/79 (94) 95 97.9 03/27/24 20:00 Nasal Cannula* 4 36 Total Intake and Output 03/27/24 03/27/24 03/28/24 15:00 23:00 07:00 Intake Total 150 ml 850 ml 1050 ml Output Total 1025 ml 1150 ml Balance 150 ml -175 ml -100 ml medications Current Medications Medications Dose Ordered Sig/Calista Route Start Time Stop Time Status Last Admin Dose Admin Acetaminophen/ Hydrocodone Bitart 1 tab Q4HP PRN PO 03/25/24 14:00 Ondansetron HCl 4 mg Q4HP PRN IV 03/25/24 14:00 Morphine Sulfate 2 mg Q4HPRN PRN IV 03/25/24 14:00 Atorvastatin Calcium 20 mg HS PO 03/25/24 22:00 03/27/24 22:42 20 MG Tamsulosin HCl 0.4 mg DAILY PO 03/26/24 10:00 03/28/24 09:27 0.4 MG Pantoprazole Sodium 40 mg DAILY IV 03/25/24 15:30 03/28/24 09:27 40 MG Diagnostic Test (Pha) 1 strip ACHS 03/25/24 17:00 03/28/24 11:27 1 STRIP Insulin Human Regular ACHS SC 03/25/24 17:00 03/28/24 11:30 3 UNITS Dextrose 50 ml UD PRN IV 03/25/24 15:30 Ceftriaxone Sodium 50 ml @ 100 mls/hr DAILY@09 IV 03/25/24 20:15 03/28/24 09:27 100 MLS/HR Metronidazole 100 ml @ 100 mls/hr Q8HR IV 03/25/24 22:00 03/28/24 04:54 100 MLS/HR Levalbuterol HCl 1.25 mg Q6HR NEB 03/28/24 00:00 Examination: GENERAL:Normal, HEENT:Normal, NECK:Normal, LUNGS:Normal, CVS:Normal, ABDOMEN:Normal, MSK:Normal, SKIN:Normal, NEURO:Normal, :Normal laboratory and microbiology Laboratory Tests 03/28/24 05:53 Test 03/28/24 05:53 Range/Units Serum Glucose 167 H 74-106 mg/dL Microbiology Date/Time Source Procedure Growth Status 03/26/24 13:45 Blood Blood Culture - Preliminary NO GROWTH AFTER 24 HOURS OF INCUBATION. Resulted 03/25/24 18:15 Voided Urine Urine Culture - Final Complete Problem List/Assessment/Plan Problem List/Assessment/Plan Acute kidney injury multifactorial but likely hemodynamically mediated ckd 3a SBO vs Illeus Horseshoe kidney Persistent hypotension possibly secondary to blood pressure medication effect Paroxysmal AFib? metabolic acidosis likely sec to diarrhoea recs bicarb drip for 1 L renal function improving seen with rn bedside Plan discussed with: Patient My Orders My Orders Orders - LEATHA AUSTIN MD Procedure Category Date Status Time Sodium Bicarb PHA 03/28/24 In Process 50meq/50ml Vial 11:00 LEATHA AUSTIN MD Mar 28, 2024 13:11
--- NOTE | 2024-03-28 13:18 | DVHPN2 ---
Reviewed: Care Plan, H&P, Labs, Medications, Previous Orders, Radiology Changes from previous H/P or p: No Changes Eyes: No Pain, No Vision change, No Conjunctivae inflammation, No Eyelid inflammation, No Other, No Redness ENT: No Ear pain, No Ear discharge, No Nose pain, No Nose discharge, No Nose congestion, No Mouth pain, No Mouth swelling, No Throat pain, No Throat swelling, No Other Cardiovascular: No Chest Pain, No Palpitations, No Orthopnea, No Paroxysmal Noc. Dyspnea, No Edema, No Lt Headedness, No Other Respiratory: No Cough, No Dry; Shortness of breath; No SOB with excertion, No Wheezing, No Hemoptysis, No Pleuritic Pain, No Sputum, No Other Gastrointestinal: No Nausea, No Vomiting; Abdominal Pain; No Diarrhea, No Constipation, No Melena, No Hematochezia, No Other Genitourinary: No Dysuria, No Frequency, No Incontinence, No Hematuria; R etention; No Other Musculoskeletal: No other, No neck pain, No shoulder pain, No arm pain, No back pain, No hand pain, No leg pain, No foot pain Skin: No Rash, No Lesions, No Jaundice, No Bruising, No Other Objective Vitals Vital Signs Date Time Temp Pulse Resp B/P (MAP) Pulse Ox O2 Delivery O2 Flow Rate FiO2 03/28/24 09:23 97.9 115 17 125/79 (94) 95 97.9 03/27/24 20:00 Nasal Cannula* 4 36 Intake/Output Intake and Output 03/28/24 07:00 Intake Total 2050 ml Output Total 2175 ml Balance -125 ml Intake Oral 1100 ml IV Total 950 ml Output Urine Total 2175 ml # Bowel Movements 7 Medications Current Medications Medications Dose Ordered Sig/Calista Route Start Time Stop Time Status Last Admin Dose Admin Acetaminophen/ Hydrocodone Bitart 1 tab Q4HP PRN PO 03/25/24 14:00 Ondansetron HCl 4 mg Q4HP PRN IV 03/25/24 14:00 Morphine Sulfate 2 mg Q4HPRN PRN IV 03/25/24 14:00 Atorvastatin Calcium 20 mg HS PO 03/25/24 22:00 03/27/24 22:42 20 MG Tamsulosin HCl 0.4 mg DAILY PO 03/26/24 10:00 03/28/24 09:27 0.4 MG Pantoprazole Sodium 40 mg DAILY IV 03/25/24 15:30 03/28/24 09:27 40 MG Diagnostic Test (Pha) 1 strip ACHS 03/25/24 17:00 03/28/24 11:27 1 STRIP Insulin Human Regular ACHS SC 03/25/24 17:00 03/28/24 11:30 3 UNITS Dextrose 50 ml UD PRN IV 03/25/24 15:30 Ceftriaxone Sodium 50 ml @ 100 mls/hr DAILY@09 IV 03/25/24 20:15 03/28/24 09:27 100 MLS/HR Metronidazole 100 ml @ 100 mls/hr Q8HR IV 03/25/24 22:00 03/28/24 04:54 100 MLS/HR Levalbuterol HCl 1.25 mg Q6HR NEB 03/28/24 00:00 Laboratory Results Laboratory Tests 03/28/24 05:53 Chemistry Test 03/28/24 05:53 Albumin 3.9 g/dL (3.2-4.8) Calcium Level 9.5 mg/dL (8.7-10.4) Total Protein 6.9 g/dL (5.7-8.2) LFT Test 03/28/24 05:53 Alanine Aminotransferase (ALT) 22 U/L (7-40) Alkaline Phosphatase 142 U/L (46-116) H Aspartate Amino Transferase (AST) 20 U/L (13-40) Total Bilirubin 0.3 mg/dL (0.2-1.0) Urinalysis Test 03/25/24 18:15 Urine Color Dark-yellow (Yellow) Urine Clarity Ex.turbid (Clear) Urine pH 5.0 (5.0-9.0) Urine Specific [place] 1.024 (1.001-1.035) Urine Protein 1+ (Negative) H Urine Ketones Negative (Negative) Urine Blood 3+ /uL (Negative) H Urine Nitrite Negative (Negative) Urine Bilirubin Negative (Negative) Urine Urobilinogen 2 mg/dL (Negative) H Urine Leukocyte Esterase Negative /uL (Negative) Urine RBC 788 /hpf (0 - 3) Urine WBC 43 /hpf (0 - 3) Urine Squamous Epithelial Cells Few /hpf (<5) Urine Bacteria Few /hpf (None Seen) H Urine Hyaline Casts Few /lpf (0 - 2) Urine Mucus Few (None Seen) Urine Glucose Normal mg/dL (Normal) Microbiology Microbiology Date/Time Source Procedure Growth Status 03/26/24 13:45 Blood Blood Culture - Preliminary NO GROWTH AFTER 24 HOURS OF INCUBATION. Resulted 03/25/24 18:15 Voided Urine Urine Culture - Final Complete Labs and/or images reviewed: Labs reviewed by me, Image(s) reviewed by me Assessment/Plan Assessment/Plan Septic shock with altered mental status low blood pressure and confusion secondary to small-bowel obstruction Rocephin Flagyl Acute dehydration: IV fluids Hypoxic respiratory failure: Oxygen by nasal cannula Abdominal Pain secondary to small-bowel obstruction: Consult for surgeon appreciated, small-bowel follow through shows no obstruction LUZ ELENA: Consult by Dr. Boswell appreciated Diabetes type 2 Hypertension Hypercholesterolemia BPH Acute urinary tract infection: Blood cultures urine cultures, continue Rocephin History of Laparoscopic appendectomy 11/04/[address] Howell Shanita test neg COVID test negative Time spent 70 minutes Advanced care planning time 20 minutes Patient is full code Patient Left AMA during the previous visit in November 2023 Plan discussed with: Patient Date of Service: Mar 28, 2024 Billing Provider: LOUISA BONILLA MD Common Visit Codes: [id number] INP/OBS CARE(HIGH) LOUISA BONILLA MD Mar 28, 2024 13:18
--- NOTE | 2024-03-28 15:23 | DVH ---
EXAM: NM NM VQ SCAN HISTORY: rule out PE COMPARISON: None TECHNIQUE: Following the administration of the ventilation agent, standard projections of the lungs were acquired. The same images were repeated after administration of the perfusion agent. Findings: Ventilation images demonstrate homogenous distribution of radiotracer throughout both lungs. Perfusion images demonstrate homogeneous distribution of radiotracer throughout both lungs. No periph eral wedge-shaped moderate or large subsegmental or segmental mismatched perfusion defects to suggest acute pulmonary embolism. Impression: 1. Based on PIOPED criteria, low probability for pulmonary embolism.
--- NOTE | 2024-03-28 18:23 | DVHPN2 ---
Progress Note - Dictate Date Seen: Mar 28, 2024 Medical Necessity Reason Pt with a Central, PICC or Fol: Yes The following are medically ne: Almanzar Catheter Subjective Patient is lying comfortably No new complaints Patient has multiple bowel movements after the small-bowel series There was no obstruction on the small-bowel x-ray vital signs Vital Sign Date Time Temp Pulse Resp B/P (MAP) Pulse Ox O2 Delivery O2 Flow Rate FiO2 03/28/24 17:00 98.4 120 18 150/87 (108) 95 98.4 03/28/24 08:00 Nasal Cannula* 2 28 Total Intake and Output 03/27/24 03/27/24 03/28/24 15:00 23:00 07:00 Intake Total 150 ml 850 ml 1050 ml Output Total 1025 ml 1150 ml Balance 150 ml -175 ml -100 ml medications Current Medications Medications Dose Ordered Sig/Calista Route Start Time Stop Time Status Last Admin Dose Admin Acetaminophen/ Hydrocodone Bitart 1 tab Q4HP PRN PO 03/25/24 14:00 Ondansetron HCl 4 mg Q4HP PRN IV 03/25/24 14:00 Morphine Sulfate 2 mg Q4HPRN PRN IV 03/25/24 14:00 Atorvastatin Calcium 20 mg HS PO 03/25/24 22:00 03/27/24 22:42 20 MG Tamsulosin HCl 0.4 mg DAILY PO 03/26/24 10:00 03/28/24 09:27 0.4 MG Pantoprazole Sodium 40 mg DAILY IV 03/25/24 15:30 03/28/24 09:27 40 MG Diagnostic Test (Pha) 1 strip ACHS 03/25/24 17:00 03/28/24 16:26 1 STRIP Insulin Human Regular ACHS SC 03/25/24 17:00 03/28/24 17:06 3 UNITS Dextrose 50 ml UD PRN IV 03/25/24 15:30 Ceftriaxone Sodium 50 ml @ 100 mls/hr DAILY@09 IV 03/25/24 20:15 03/28/24 09:27 100 MLS/HR Metronidazole 100 ml @ 100 mls/hr Q8HR IV 03/25/24 22:00 03/28/24 15:09 100 MLS/HR Levalbuterol HCl 1.25 mg Q6HR NEB 03/28/24 00:00 objective GEN: Obese male in no acute distress. Alert. On nasal cannula. HEENT: Normocephalic atraumatic. Moist mucous membranes. Anicteric sclerae. CV: RRR; Respiratory: Coarse breath sounds ABD: Well-healed incisional scar. Abdomen is obese, soft. Nontender nondistended. EXT : No clubbing cyanosis or edema laboratory and microbiology Laboratory Tests 03/28/24 05:53 Test 03/28/24 05:53 Range/Units Serum Glucose 167 H 74-106 mg/dL Problems(with codes): (1) Gaseous abdominal distention (2) Abnormal finding on GI tract imaging (3) Acute abdominal pain Prognosis Assessment plan Advance diet slowly as tolerated If some required patient can be treated with Reglan 5 mg IV q.8 hours Outpatient follow up with GI Services to discuss elective colonoscopy if not recently done ; I would be happy to follow up with him in my clinic I will sign off on this case, if any further GI intervention is required please contact GI [facility] physician on-call Plan discussed with: Patient LEANNA CONTRERAS MD Mar 28, 2024 18:23
[2024-03-29] VITALS (12 sets, daily range): BP systolic 119–150; BP diastolic 74–98; PULSE 78–133; RESP 16–20; TEMP 96.8–98.7; O2SAT 92–96
[2024-03-29 06:08] LABS: Hemoglobin 10.9 g/dL (13.5-17.5); Mean Corpuscular Hgb Conc. 33.9 g/dL (32.0-36.0); Mean Corpuscular Volume 88.5 fL (80.0-100.0); Platelet Count (auto) 249 10^3/uL (140-450); Red Blood Cells 3.62 10^6/uL (4.5-5.90); Red Cell Distribution Width 16.6 % (11.8-14.3); White Blood Cell 12.2 10^3/uL (4.4-10.8)
[2024-03-29 06:20] LABS: Band Neutrophils % (manual) 0; Basophils % (manual) 0 (0.0-2.0); Blast Cells 0; Eosinophils % (manual) 0 (0-7); Metamyelocytes % 0; Myelocytes % 0; Promyelocytes % 0; Reactive Lymphocytes 0
[2024-03-29 06:30] LABS: Alanine Aminotransferase 19 U/L (7-40); Albumin 3.7 g/dL (3.2-4.8); Alkaline Phosphatase 122 U/L (46-116); Anion Gap 10 (5-15); Aspartate Aminotransferase 13 U/L (13-40); BUN/Creatinine Ratio 29.9 (10.0-20.0); Blood Urea Nitrogen 56 mg/dL (9-23); Calcium 9.5 mg/dL (8.7-10.4); Carbon Dioxide 21 mmol/L (20-31); Chloride 113 mmol/L (98-107); Glucose 174 mg/dL (74-106); Potassium 4.2 mmol/L (3.5-5.1); Sodium 144 mmol/L (136-145)
[2024-03-29 06:31] LABS: Bilirubin, Total 0.3 mg/dL (0.2-1.0); Total Protein 6.2 g/dL (5.7-8.2)
[2024-03-29 06:57] LABS: Lymphocytes % (manual) 9 (10.0-50.0); Monocytes % (manual) 8 (0-12)
[2024-03-29 06:58] LABS: Anisocytosis Slight; Large Platelets FEW; Platelet Estimate Adequate
--- NOTE | 2024-03-29 11:48 | DVHPN2 ---
Reviewed: Care Plan, H&P, Labs, Medications, Previous Orders, Radiology Changes from previous H/P or p: No Changes Eyes: No Pain, No Vision change, No Conjunctivae inflammation, No Eyelid inflammation, No Other, No Redness ENT: No Ear pain, No Ear discharge, No Nose pain, No Nose discharge, No Nose congestion, No Mouth pain, No Mouth swelling, No Throat pain, No Throat swelling, No Other Cardiovascular: No Chest Pain, No Palpitations, No Orthopnea, No Paroxysmal Noc. Dyspnea, No Edema, No Lt Headedness, No Other Respiratory: No Cough, No Dry; Shortness of breath; No SOB with excertion, No Wheezing, No Hemoptysis, No Pleuritic Pain, No Sputum, No Other Gastrointestinal: No Nausea, No Vomiting; Abdominal Pain; No Diarrhea, No Constipation, No Melena, No Hematochezia, No Other Genitourinary: No Dysuria, No Frequency, No Incontinence, No Hematuria; R etention; No Other Musculoskeletal: No other, No neck pain, No shoulder pain, No arm pain, No back pain, No hand pain, No leg pain, No foot pain Skin: No Rash, No Lesions, No Jaundice, No Bruising, No Other Objective Vitals Vital Signs Date Time Temp Pulse Resp B/P (MAP) Pulse Ox O2 Delivery O2 Flow Rate FiO2 03/29/24 09:00 96.8 121 16 145/98 (114) 96 96.8 03/29/24 07:44 Nasal Cannula* 2 28 Intake/Output Intake and Output 03/29/24 07:00 Intake Total 1690 ml Output Total 3000 ml Balance -1310 ml Intake Oral 1140 ml IV Total 550 ml Output Urine Total 2500 ml Stool Total 500 ml # Bowel Movements 3 Medications Current Medications Medications Dose Ordered Sig/Calista Route Start Time Stop Time Status Last Admin Dose Admin Acetaminophen/ Hydrocodone Bitart 1 tab Q4HP PRN PO 03/25/24 14:00 Ondansetron HCl 4 mg Q4HP PRN IV 03/25/24 14:00 Morphine Sulfate 2 mg Q4HPRN PRN IV 03/25/24 14:00 Atorvastatin Calcium 20 mg HS PO 03/25/24 22:00 03/27/24 22:42 20 MG Tamsulosin HCl 0.4 mg DAILY PO 03/26/24 10:00 03/29/24 08:59 0.4 MG Pantoprazole Sodium 40 mg DAILY IV 03/25/24 15:30 03/29/24 08:59 40 MG Diagnostic Test (Pha) 1 strip ACHS 03/25/24 17:00 03/29/24 10:58 1 STRIP Insulin Human Regular ACHS SC 03/25/24 17:00 03/29/24 11:12 4 UNITS Dextrose 50 ml UD PRN IV 03/25/24 15:30 Ceftriaxone Sodium 50 ml @ 100 mls/hr DAILY@09 IV 03/25/24 20:15 03/29/24 08:59 100 MLS/HR Metronidazole 100 ml @ 100 mls/hr Q8HR IV 03/25/24 22:00 03/29/24 05:45 100 MLS/HR Levalbuterol HCl 1.25 mg Q6HR NEB 03/28/24 00:00 Laboratory Results Laboratory Tests 03/29/24 04:45 Chemistry Test 03/29/24 04:45 Albumin 3.7 g/dL (3.2-4.8) Calcium Level 9.5 mg/dL (8.7-10.4) Total Protein 6.2 g/dL (5.7-8.2) LFT Test 03/29/24 04:45 Alanine Aminotransferase (ALT) 19 U/L (7-40) Alkaline Phosphatase 122 U/L (46-116) H Aspartate Amino Transferase (AST) 13 U/L (13-40) Total Bilirubin 0.3 mg/dL (0.2-1.0) Urinalysis Test 03/25/24 18:15 Urine Color Dark-yellow (Yellow) Urine Clarity Ex.turbid (Clear) Urine pH 5.0 (5.0-9.0) Urine Specific [place] 1.024 (1.001-1.035) Urine Protein 1+ (Negative) H Urine Ketones Negative (Negative) Urine Blood 3+ /uL (Negative) H Urine Nitrite Negative (Negative) Urine Bilirubin Negative (Negative) Urine Urobilinogen 2 mg/dL (Negative) H Urine Leukocyte Esterase Negative /uL (Negative) Urine RBC 788 /hpf (0 - 3) Urine WBC 43 /hpf (0 - 3) Urine Squamous Epithelial Cells Few /hpf (<5) Urine Bacteria Few /hpf (None Seen) H Urine Hyaline Casts Few /lpf (0 - 2) Urine Mucus Few (None Seen) Urine Glucose Normal mg/dL (Normal) Microbiology Microbiology Date/Time Source Procedure Growth Status 03/26/24 13:45 Blood Blood Culture - Preliminary NO GROWTH AFTER 48 HOURS OF INCUBATION. Resulted 03/25/24 18:15 Voided Urine Urine Culture - Final Complete Labs and/or images reviewed: Labs reviewed by me, Image(s) reviewed by me Assessment/Plan Assessment/Plan Septic shock with altered mental status low blood pressure and confusion secondary to small-bowel obstruction Rocephin Flagyl Acute dehydration: IV fluids Hypoxic respiratory failure: Oxygen by nasal cannula Abdominal Pain secondary to small-bowel obstruction: Consult for surgeon appreciated, small-bowel follow through shows no obstruction GI consult by Dr. Srivastava appreciated LUZ ELENA: Consult by Dr. Boswell appreciated Diabetes type 2 Hypertension Hypercholesterolemia BPH Acute urinary tract infection: Blood cultures urine cultures, continue Rocephin History of Laparoscopic appendectomy 11/04/[address] Howell Shanita test neg COVID test negative Elevated 14.0 PE ruled out Venous ultrasound rule out DVT pending Time spent 65 minutes Advanced care planning time 20 minutes Patient is full code Patient Left AMA during the previous visit in November 2023 Plan discussed with: Patient Date of Service: Mar 29, 2024 Billing Provider: LOUISA BONILLA MD Common Visit Codes: [id number] INP/OBS CARE(HIGH) LOUISA BONILLA MD Mar 29, 2024 11:48
--- NOTE | 2024-03-29 12:39 | DVH ---
US BiLat Lower DVT HISTORY: Elevated D-dimer rule out DVT COMPARISON: None TECHNIQUE: Duplex Doppler evaluation of the deep venous system of the lower extremity from the common femoral veins, superficial femoral vein, great saphenous vein, deep femoral vein, popliteal vein, an d calf veins, including color Doppler and spectral/pulsed waveform analysis, was performed. FINDINGS: Right: - Common femoral vein: Compressible - Deep femoral vein: Compressible - Femoral vein: Compressible - Popliteal vein: Compressible - Posterior tibial vein: Waveforms present - Peroneal vein: Not seen. - Other: Nothing Left: - Common femoral vein: Compressible - Deep femoral vein: Compressible - Femoral vein: Compressible - Popliteal vein: Compressible - Posterior tibial vein: Waveforms present - Peroneal vein: Not seen. - Other: Nothing IMPRESSION: No right or left lower extremity deep venous thrombosis.
--- NOTE | 2024-03-29 16:47 | DVHPN2 ---
Progress Note Date Seen: Mar 29, 2024 Medical Necessity Reason Pt with a Central, PICC or Fol: Yes The following are medically ne: Almanzar Catheter Subjective Patient reports: No new complaints, Feels better Objective vital signs Vital Sign Date Time Temp Pulse Resp B/P (MAP) Pulse Ox O2 Delivery O2 Flow Rate FiO2 03/29/24 13:00 98.7 78 18 119/74 (89) 94 98.7 03/29/24 11:47 Nasal Cannula* 2 28 Total Intake and Output 03/28/24 03/28/24 03/29/24 15:00 23:00 07:00 Intake Total 390 ml 950 ml 350 ml Output Total 1100 ml 1900 ml Balance 390 ml -150 ml -1550 ml medications Current Medications Medications Dose Ordered Sig/Calista Route Start Time Stop Time Status Last Admin Dose Admin Acetaminophen/ Hydrocodone Bitart 1 tab Q4HP PRN PO 03/25/24 14:00 Ondansetron HCl 4 mg Q4HP PRN IV 03/25/24 14:00 Morphine Sulfate 2 mg Q4HPRN PRN IV 03/25/24 14:00 Atorvastatin Calcium 20 mg HS PO 03/25/24 22:00 03/27/24 22:42 20 MG Tamsulosin HCl 0.4 mg DAILY PO 03/26/24 10:00 03/29/24 08:59 0.4 MG Pantoprazole Sodium 40 mg DAILY IV 03/25/24 15:30 03/29/24 08:59 40 MG Diagnostic Test (Pha) 1 strip ACHS 03/25/24 17:00 03/29/24 16:33 1 STRIP Insulin Human Regular ACHS SC 03/25/24 17:00 03/29/24 11:12 4 UNITS Dextrose 50 ml UD PRN IV 03/25/24 15:30 Ceftriaxone Sodium 50 ml @ 100 mls/hr DAILY@09 IV 03/25/24 20:15 03/29/24 08:59 100 MLS/HR Metronidazole 100 ml @ 100 mls/hr Q8HR IV 03/25/24 22:00 03/29/24 14:00 100 MLS/HR Levalbuterol HCl 1.25 mg Q6HR NEB 03/28/24 00:00 laboratory and microbiology Laboratory Tests 03/29/24 04:45 Test 03/29/24 04:45 Range/Units Serum Glucose 174 H 74-106 mg/dL Microbiology Date/Time Source Procedure Growth Status 03/26/24 13:45 Blood Blood Culture - Preliminary NO GROWTH AFTER 72 HOURS OF INCUBATION. Resulted 03/25/24 18:15 Voided Urine Urine Culture - Final Complete Problem List/Assessment/Plan Problem List/Assessment/Plan Acute kidney injury likely hemodynamically mediated ckd 3a SBO vs [place] kidney Persistent hypotension possibly secondary to blood pressure medication effect Paroxysmal AFib? metabolic acidosis likely sec to diarrhoea recs bicarb drip for 1 L renal function improving seen with rn bedside Plan discussed with: Patient LEATHA AUSTIN MD Mar 29, 2024 16:47
[2024-03-30 01:00] VITALS: BP 140/83; PULSE 141; RESP 20; TEMP 98.6; O2SAT 92
[2024-03-30 05:00] VITALS: BP 140/88; PULSE 113; RESP 18; TEMP 98.5; O2SAT 93
[2024-03-30 05:57] LABS: Hemoglobin 11.2 g/dL (13.5-17.5); Mean Corpuscular Hemoglobin 30.2 pg (28.0-32.0); Mean Corpuscular Volume 88.8 fL (80.0-100.0); Platelet Count (auto) 273 10^3/uL (140-450); Red Blood Cells 3.71 10^6/uL (4.5-5.90); White Blood Cell 12.6 10^3/uL (4.4-10.8)
[2024-03-30 06:10] LABS: Band Neutrophils % (manual) 0; Basophils % (manual) 0 (0.0-2.0); Blast Cells 0; Eosinophils % (manual) 0 (0-7); Myelocytes % 0; Promyelocytes % 0; Reactive Lymphocytes 0
[2024-03-30 06:16] LABS: Alanine Aminotransferase 17 U/L (7-40); Albumin 3.4 g/dL (3.2-4.8); Alkaline Phosphatase 97 U/L (46-116); Anion Gap 10 (5-15); Aspartate Aminotransferase 11 U/L (13-40); BUN/Creatinine Ratio 28.9 (10.0-20.0); Bilirubin, Total 0.4 mg/dL (0.2-1.0); Blood Urea Nitrogen 48 mg/dL (9-23); Calcium 9.1 mg/dL (8.7-10.4); Carbon Dioxide 21 mmol/L (20-31); Chloride 114 mmol/L (98-107); Glucose 161 mg/dL (74-106); Potassium 3.8 mmol/L (3.5-5.1); Sodium 145 mmol/L (136-145)
[2024-03-30 06:17] LABS: Total Protein 5.7 g/dL (5.7-8.2)
[2024-03-30 07:30] VITALS: RESP 20; O2SAT 94
[2024-03-30 07:43] LABS: Lymphocytes % (manual) 7 (10.0-50.0); Metamyelocytes % 1; Monocytes % (manual) 13 (0-12); Platelet Estimate Adequate
[2024-03-30 07:44] LABS: RBC Morphology Normal
[2024-03-30 09:00] VITALS: BP 139/76; PULSE 110; RESP 17; TEMP 97.6; O2SAT 90
[2024-03-30] MEDS ORDERED: LEVALBUTEROL HCL 1.25 MG/3 ML NEB NEB PRN (11:00)
[2024-03-30 13:00] VITALS: BP 140/71; PULSE 63; RESP 16; TEMP 98.2; O2SAT 93
[2024-03-30] MEDS ORDERED: METR-344 PO (13:38)
[2024-03-30] MEDS ORDERED: LEVO500T91 PO (13:38)
--- NOTE | 2024-03-30 13:44 | DVHDS2 ---
Discharge Summary Date of Admission Mar 25, 2024 at 14:00 Date of Discharge: Mar 30, 2024 Admitting Diagnosis Abdominal pain nausea Wounds: None Labs/Diagnostic Data: Laboratory Results Test 03/30/24 11:27 03/30/24 05:22 03/29/24 04:45 03/28/24 05:53 POC Glucose 157 mg/dl (70-106) White Blood Count 12.6 10^3/uL (4.4-10.8) Red Blood Count 3.71 10^6/uL (4.5-5.90) Hemoglobin 11.2 g/dL (13.5-17.5) Hematocrit 33.0 % (41.0-53.0) Mean Corpuscular Volume 88.8 fL (80.0-100.0) Mean Corpuscular Hemoglobin 30.2 pg (28.0-32.0) Mean Corpuscular Hemoglobin Concent 34.0 g/dL (32.0-36.0) Red Cell Distribution Width 17.0 % (11.8-14.3) Platelet Count 273 10^3/uL (140-450) Mean Platelet Volume 7.2 fL (6.9-10.8) Neutrophils (%) (Auto) % (37.0-80.0) Lymphocytes (%) (Auto) % (10.0-50.0) Monocytes (%) (Auto) % (0.0-12.0) Basophils (%) (Auto) % (0.0-2.0) Neutrophils # (Auto) 10 ^3/uL (1.6-8.6) Lymphocytes # (Auto) 10 ^3/uL (0.4-5.4) Monocytes # (Auto) 10 ^3/uL (0-1.3) Differential Total Cells Counted 100.0 (100) Neutrophils % (Manual) 79 (37.0-80.0) Band Neutrophils % (Manual) 0 Lymphocytes % (Manual) 7 (10.0-50.0) Monocytes % (Manual) 13 (0-12) Eosinophils % (Manual) 0 (0-7) Basophils % (Manual) 0 (0.0-2.0) Metamyelocytes % (manual) 1 Myelocytes % (Manual) 0 Promyelocytes % (Manual) 0 Blast Cells % (Manual) 0 Reactive Lymphocytes 0 Platelet Estimate Adequate Red Blood Cell Morphology Normal Sodium Level 145 mmol/L (136-145) Potassium Level 3.8 mmol/L (3.5-5.1) Chloride Level 114 mmol/L (98-107) Carbon Dioxide Level 21 mmol/L (20-31) Anion Gap 10 (5-15) Blood Urea Nitrogen 48 mg/dL (9-23) Creatinine 1.66 mg/dL (0.700-1.30) Glomerular Filtration Rate Calc 43 mL/min (>90) BUN/Creatinine Ratio 28.9 (10.0-20.0) Serum Glucose 161 mg/dL (74-106) Calcium Level 9.1 mg/dL (8.7-10.4) Total Bilirubin 0.4 mg/dL (0.2-1.0) Aspartate Amino Transferase (AST) 11 U/L (13-40) Alanine Aminotransferase (ALT) 17 U/L (7-40) Alkaline Phosphatase 97 U/L (46-116) Total Protein 5.7 g/dL (5.7-8.2) Albumin 3.4 g/dL (3.2-4.8) Large Platelets Few Anisocytosis (manual) Slight Giant Platelets Few Test 03/27/24 05:53 03/26/24 13:45 03/25/24 20:20 03/25/24 18:15 Eosinophils (%) (Auto) 1.3 % (0.0-7.0) Eosinophils # (Auto) 0.1 10 ^3/uL (0-0.8) Basophils # (Auto) 0 10 ^3/uL (0-0.2) Nucleated Red Blood Cells 0.1 % D-Dimer, Quantitative 14.91 mg/L FEU (0.0-0.49) Influenza Type A Antigen Negative (Negative) Influenza Type B Antigen Negative (Negative) SARS-CoV-2 Antigen (Rapid) Negative (NEGATIVE) Urine Color Dark-yellow (Yellow) Urine Clarity Ex.turbid (Clear) Urine pH 5.0 (5.0-9.0) Urine Specific [place] 1.024 (1.001-1.035) Urine Protein 1+ (Negative) Urine Ketones Negative (Negative) Urine Blood 3+ /uL (Negative) Urine Nitrite Negative (Negative) Urine Bilirubin Negative (Negative) Urine Urobilinogen 2 mg/dL (Negative) Urine Leukocyte Esterase Negative /uL (Negative) Urine RBC 788 /hpf (0 - 3) Urine WBC 43 /hpf (0 - 3) Urine Squamous Epithelial Cells Few /hpf (<5) Urine Bacteria Few /hpf (None Seen) Urine Hyaline Casts Few /lpf (0 - 2) Urine Mucus Few (None Seen) Urine Glucose Normal mg/dL (Normal) Test 03/25/24 12:03 03/25/24 08:47 Troponin I High Sensitivity 5 ng/L (</=54) B-Type Natriuretic Peptide 73.44 pg/mL (0-100) Other Laboratory Tests 03/30/24 05:22 Brief Hx & Hospital Course: 74-year-old male with a history of laparoscopic appendectomy on 10/28/2073 hypotension hypercholesterolemia diabetes came in complaining of abdominal pain and nausea and vomiting. Found to have intestinal obstruction secondary to small bowel obstruction seen by surgeon Dr. Ortiz who ordered small-bowel follow- through studies treated with IV fluids NPO NG suction also seen by GI Dr. Jennifer Srivastava . Patient has slowly improved with resolution of the symptoms blood cultures and urine cultures were negative COVID test negative Shanita test negative D-dimer elevated 14.0 PE ruled out DVT ruled out. At the time of discharge patient is tolerating regular diet afebrile asymptomatic discharged home on Levaquin and Flagyl. He will follow up with his primary Dr Consults/Reason for consult GI Dr. Jennifer Srivastava Surgeon Dr. Anila Srivastava Operations or Procedures CT abdomen pelvis without contrast Gastrografin study Condition at Discharge: Fair Final Diagnosis/Problems List Septic shock with altered mental status low blood pressure and confusion secondary to small-bowel obstruction Rocephin Flagyl Acute dehydration: IV fluids Hypoxic respiratory failure: Oxygen by nasal cannula Abdominal Pain secondary to small-bowel obstruction: Consult for surgeon appreciated, small-bowel follow through shows no obstruction GI consult by Dr. Srivastava appreciated LUZ ELENA: Consult by Dr. Boswell appreciated Diabetes type 2 Hypertension Hypercholesterolemia BPH Acute urinary tract infection: Blood cultures urine cultures, continue Rocephin History of Laparoscopic appendectomy 11/04/[address] Howell Shanita test neg COVID test negative Elevated 14.0 PE ruled out Venous ultrasound rule out DVT pending Discharge Disposition: Home Discharge Instruct/Medications Diet: Cardiac 2g Na,low cholest Activity: Light activity Follow Up/Referral: Follow up with your primary Medications: Flagyl Levaquin Transmitted to [facility] 39 (Time taken for discharge summary 39 minute) Discharge Statement: "Patient was advised to return to the ER or call 911 if any headaches, dizziness, shortness of breath, chest pain, abdominal pain, bleeding, fevers, or worsening of medical condition. Patient was counseled about treatment plan, medications, possible side effects, patientverbalized understanding. All questions were answered to the best of my ability. This discharge took greater then 30 minutes in planning, reviewing documentation, counseling the patient, and discussing with other team members." ASSESSMENT ASSESSMENT Hospital Course Improved Assessment Septic shock with altered mental status low blood pressure and confusion secondary to small-bowel obstruction Chiki Moreno Acute dehydration: IV fluids Hypoxic respiratory failure: Oxygen by nasal cannula Abdominal Pain secondary to small-bowel obstruction: Consult for surgeon appreciated, small-bowel follow through shows no obstruction GI consult by Dr. Srivastava appreciated LUZ ELENA: Consult by Dr. Boswell appreciated Diabetes type 2 Hypertension Hypercholesterolemia BPH Acute urinary tract infection: Blood cultures urine cultures, continue Chiki History of Laparoscopic appendectomy 11/04/[address] Howell Shanita test neg COVID test negative Elevated 14.0 PE ruled out Venous ultrasound rule out DVT pending Date of Service: Mar 30, 2024 Billing Provider: LOUISA BONILLA MD Common Visit Codes: [id number] DISCH DAY >30min LOUISA BONILLA MD Mar 30, 2024 13:44
[2024-03-30 14:02] VITALS: BP 109/81; TEMP 36.8
--- NOTE | 2024-03-30 18:57 | DVHPN2 ---
Progress Note Date Seen: Mar 30, 2024 Medical Necessity Reason Pt with a Central, PICC or Fol: Yes The following are medically ne: Almanzar Catheter Subjective Patient reports: No new complaints Review of Systems: HEENT:Normal, CVS:Normal, RESPIRATORY:Normal, GI:Normal, :Normal, MSK:Normal, NEURO:Normal Objective vital signs Vital Sign Date Time Temp Pulse Resp B/P (MAP) Pulse Ox O2 Delivery O2 Flow Rate FiO2 03/30/24 14:02 36.8 03/30/24 13:00 63 16 140/71 (94) 93 03/30/24 07:30 Room Air* 0 21 Total Intake and Output 03/29/24 03/29/24 03/30/24 15:00 23:00 07:00 Intake Total 630 ml 800 ml 500 ml Output Total 3050 ml 800 ml Balance 630 ml -2250 ml -300 ml Examination: GENERAL:Normal, HEENT:Normal, NECK:Normal, LUNGS:Normal, CVS:Normal, ABDOMEN:Normal, MSK:Normal, SKIN:Normal, NEURO:Normal, :Normal laboratory and microbiology Laboratory Tests 03/30/24 05:22 Test 03/30/24 05:22 Range/Units Serum Glucose 161 H 74-106 mg/dL Microbiology Date/Time Source Procedure Growth Status 03/26/24 13:45 Blood Blood Culture - Preliminary NO GROWTH AFTER 72 HOURS OF INCUBATION. Resulted 03/25/24 18:15 Voided Urine Urine Culture - Final Complete Problem List/Assessment/Plan Problem List/Assessment/Plan Acute kidney injury likely hemodynamically mediated ckd 3a SBO vs [place] kidney Persistent hypotension possibly secondary to blood pressure medication effect Paroxysmal AFib? metabolic acidosis likely sec to diarrhoea recs renal function improving seen with rn bedside Plan discussed with: Patient LEATHA ASUTIN MD Mar 30, 2024 18:57
== END 2024-03-30 15:10 | disposition home or self-care (01) | DRG 871 ==
LOC: ER 08:30 → EDBD 08:30 → OVERFLOW 14:00 → WEST WING 23:00
PROVIDERS: ADMIT Registered Nurse General Practice; ATTEND Family Medicine
DX: A41.9 Sepsis, unspecified organism (principal); J96.01 Acute respiratory failure with hypoxia; R65.21 Severe sepsis with septic shock; K56.600 Partial intestinal obstruction, unspecified as to cause; N17.9 Acute kidney failure, unspecified; N39.0 Urinary tract infection, site not specified; E87.20 Acidosis, unspecified; Z20.822 Contact with and (suspected) exposure to COVID-19; E78.00 Pure hypercholesterolemia, unspecified; I10 Essential (primary) hypertension; E86.0 Dehydration; E11.9 Type 2 diabetes mellitus without complications; N40.0 Benign prostatic hyperplasia without lower urinary tract symptoms; Q63.1 Lobulated, fused and horseshoe kidney; Z82.49 Family history of ischemic heart disease and other diseases of the circulatory system; Z82.5 Family history of asthma and other chronic lower respiratory diseases; Z82.3 Family history of stroke; Z87.891 Personal history of nicotine dependence; Z90.49 Acquired absence of other specified parts of digestive tract; Z99.81 Dependence on supplemental oxygen; Z79.899 Other long term (current) drug therapy; Z79.82 Long term (current) use of aspirin
CPT/HCPCS: 36415; 71045; 74018; 74176; 74250; 78582; 80048; 80053; 81001; 82962; 83880; 84484; 85007; 85025; 85027; 85379; 86850; 86900; 86901; 87040; 87086; 87426; 87804; 93005; 93970; 94640; 96360; 96361; 97110; 97116; 97163; 97530; 99291; 99292; G0378; J1815; J2405; J2470; J3490